=== PATIENT | female | born 1995 | race Two or more races ===

== ENCOUNTER 2023-07-05 17:16 | Inpatient (IN) ==
[2023-07-05] MEDS ORDERED: methylPREDNISolone 125 MG/2 ML VIAL IV STA (17:49)
[2023-07-05 17:50] LABS: Hemoglobin 13.7 g/dl (12.0-16.0); Mean Corpuscular Hgb Conc 33.4 g/dL (32.0-36.0); Mean Corpuscular Volume 83.8 fL (80.0-100.0); Mean Platelet Volume 8.9 fL (9.4-12.4); Platelet Count 439 K/uL (130-400); RDW Coefficient of Variation 12.9 % (11.5-14.5); RDW Standard Deviation 39.8 fL (36.4-46.3); Red Blood Count 4.89 M/uL (4.20-5.40); White Blood Count 6.46 K/ul (4.8-10.8)
--- NOTE | 2023-07-05 17:52 | Emergency Department Note ---
Impression & Plan Multiple sclerosis, Paresthesia ADMIT ED Provider Note HPI: History obtained from patient. The patient is a 27-year-old female with history of MS, who presents emergency department with chief complaint of numbness and visual changes. Patient states that she has had the symptoms throughout the day today. Patient states she has some numbness over the right side of her body as well as across her lower face and lips. Patient states she did have some of the symptoms yesterday however they have been worse today. Patient states she has had some visual changes as well. Patient denies any urinary incontinence or retention. Patient states that she does follow with [facility] neurology for MS and has also been seen at the [facility]. Patient states that she has been on Octrevus infusions, she states the last of which was in April in [place]. On arrival here to the ED the patient is alert and oriented x 3, she does not have any focal motor deficits, she otherwise appears to be in no acute distress on my initial assessment ROS: - Per HPI Differential Diagnosis: MS flare, stroke, intracranial hemorrhage, nonspecific paresthesias, ACS, critical electrolyte abnormalities, amongst other potential pathologies. *Outpatient medications and allergy history reviewed. PE: General: Alert HEENT: Normocephalic, trachea midline Eyes: Extraocular eye movement is intact, no scleral erythema Pulmonary: Clear to auscultation bilaterally, no wheezing Cardio: Regular rate and rhythm GI: Abdomen is soft to palpation : No suprapubic tenderness MSK: No evidence of trauma or malformation of the extremities, no edema, no asymmetrical swelling of either lower extremity Skin: No evidence of rash Neuro: Alert, no focal deficits, no drift of the upper extremities or lower extremities with testing against gravity, symmetrical facial movements are appreciated Psychiatric: Cooperative INDEPENDENT INTERPRETATIONS: monitoring and evaluation advisor: (As interpreted by myself): - An order was placed for continuous cardiac monitoring - Patient was noted to be in sinus rhythm with a rate of 100 EKG: (As interpreted by myself): Rate: 91 Rhythm: Normal sinus rhythm Intervals: Within normal limits ST changes: No ST elevation Time: 0528 PM Interventions provided in ED: -IV Solu-Medrol, IV fluid bolus, IV morphine, IV Zofran, IV Toradol Medical Decision Making: Patient presented to the emergency department in no acute distress. IV was established and lab work obtained, patient was placed on manager monitoring. Given the patient's previous diagnosis of MS with concern for MS flare with paresthesias, MRI imaging of the brain with and without contrast was ordered. Patient was also ordered a bolus of IV Solu-Medrol. Lab work shows no leukocytosis, hemoglobin is normal, platelet count is slightly elevated at 439, CMP does not show any critical findings, no evidence of any critical electrolyte abnormalities. MRI imaging of the brain was obtained and per the interpreting radiologist there is bilateral white matter lesions concerning for demyelinating disease without focal lesion concerning for active demyelination at this time. I discussed the patient's presentation and MRI imaging results with on-call neurology, Dr. Elder, who states that this time if the patient is symptomatically feeling well enough she can be discharged home with an oral steroid course. He advises that she follow-up in the office. Patient was initially in agreement to this plan however she stated shortly thereafter that she was having some pain in her right lower extremity that began to worsen after she got back from MRI. Patient states that she does get this pain chronically with her her MS flares. She describes the pain as located in the anterior quadriceps area and posterior to the knee. Patient states she also had the pain this morning but then it seemed to get better before acutely getting worse after returning from MRI. Patient was given Toradol and morphine here in the ED and held for an additional period of observation without significant relief in her pain. Following my reevaluation and discussion with her she would prefer inpatient admission at this time for pain control and further management of MS flare symptoms. Ultrasound imaging of the right lower extremity was therefore ordered given the atraumatic pain, [facility] hospitalist service was consulted for admission. Consultants/Discussions held with other healthcare providers: -Neurology, Dr. Elder -Hospitalist, Dr. Fernandez Disposition discussion held by myself with: -Patient Diagnosis: 1. Symptoms of acute MS flare, acute 2. Right lower extremity pain, acute on chronic, nonspecific Disposition: ADMIT Stephen Ospina DO Emergency Medicine Past Med/Surg History Problem List (Updated 07/05/23 @ 21:06 by Stephen Ospina DO) Paresthesia (Acute) Visual complaint Fatigue Vitamin D deficiency Multiple sclerosis (Acute) Family History (Updated 06/10/23 @ 09:02 by Alda Blake) Mother Hypertension Cancer Father Hypertension Social History Smoking Status: Never smoker Feels Safe at Home: Yes Allergies Allergies Allergy/AdvReac Type Severity Reaction Status Date / Time No Known Allergies Allergy Verified 06/10/23 08:59 Home Meds Home Medications Medication Instructions Recorded Confirmed ocrelizumab 30 mg/mL intravenous 600 mg IV Q6M 06/10/23 07/05/23 solution (Ocrevus) baclofen 10 mg tablet 10 mg PO UD 07/05/23 07/05/23 Previous Rx's Medication Instructions Recorded gabapentin 100 mg capsule 200 mg (2 x 100 mg) PO HS #60 caps 06/10/23 prednisone 20 mg tablet 20 mg PO BID #12 tabs 07/05/23 Results & Data (ED) Vital Signs Vital Signs - 24 hr 07/05/23 17:21 07/05/23 17:37 07/05/23 17:37 Temperature 36.8 C Temperature Source Temporal Artery Scan Pulse Rate 97 H Pulse Rate [Apical] 95 H Pulse Rate from SpO2 Sensor Pulse Rhythm [Apical] Respiratory Rate 18 21 Respiratory Effort / Characteristics Non-Labored Spontaneous Respiratory Depth Normal Respiratory Pattern Regular Blood Pressure 160/86 H Blood Pressure [Left Arm] 138/84 Blood Pressure Mean 110 Blood Pressure Mean [Left Arm] 102 Blood Pressure Position Sitting Blood Pressure Position [Left Arm] Pulse Oximetry 99 99 Oxygen Delivery Method Room Air Room Air Room Air Sepsis Recent Fever Within 48 Hours No Sepsis New/Unexplained Change in Mental Status N/A Sepsis Action Taken by Nursing No Action Required 07/05/23 17:37 07/05/23 17:39 07/05/23 18:15 Temperature Temperature Source Pulse Rate 94 H 85 Pulse Rate [Apical] Pulse Rate from SpO2 Sensor Pulse Rhythm [Apical] Respiratory Rate 20 Respiratory Effort / Characteristics Respiratory Depth Respiratory Pattern Blood Pressure 136/86 Blood Pressure [Left Arm] Blood Pressure Mean 102 Blood Pressure Mean [Left Arm] Blood Pressure Position Blood Pressure Position [Left Arm] Pulse Oximetry 99 Oxygen Delivery Method Room Air Sepsis Recent Fever Within 48 Hours Sepsis New/Unexplained Change in Mental Status Sepsis Action Taken by Nursing 07/05/23 18:30 07/05/23 19:55 07/05/23 19:55 Temperature Temperature Source Pulse Rate 95 H 85 Pulse Rate [Apical] 86 Pulse Rate from SpO2 Sensor 84 Pulse Rhythm [Apical] Regular Respiratory Rate 20 18 22 Respiratory Effort / Characteristics Non-Labored Spontaneous Respiratory Depth Normal Respiratory Pattern Regular Blood Pressure 128/84 Blood Pressure [Left Arm] 128/84 Blood Pressure Mean 98 Blood Pressure Mean [Left Arm] 98 Blood Pressure Position Blood Pressure Position [Left Arm] Sitting Pulse Oximetry 97 98 Oxygen Delivery Method Room Air Room Air Sepsis Recent Fever Within 48 Hours Sepsis New/Unexplained Change in Mental Status Sepsis Action Taken by Nursing 07/05/23 20:00 07/05/23 21:00 Temperature Temperature Source Pulse Rate 102 H Pulse Rate [Apical] Pulse Rate from SpO2 Sensor Pulse Rhythm [Apical] Respiratory Rate 18 Respiratory Effort / Characteristics Respiratory Depth Respiratory Pattern Blood Pressure 160/116 H Blood Pressure [Left Arm] Blood Pressure Mean 130 Blood Pressure Mean [Left Arm] Blood Pressure Position Blood Pressure Position [Left Arm] Pulse Oximetry 99 98 Oxygen Delivery Method Room Air Room Air Sepsis Recent Fever Within 48 Hours Sepsis New/Unexplained Change in Mental Status Sepsis Action Taken by Nursing Laboratory Data 07/05/23 17:30 07/05/23 17:30 Lab Results 07/05/23 07/05/23 Range/Units 17:30 19:59 WBC 6.46 (4.8-10.8) K/ul RBC 4.89 (4.20-5.40) M/uL Hgb 13.7 (12.0-16.0) g/dl Hct 41.0 (37.0-47.0) % MCV 83.8 (80.0-100.0) fL MCH 28.0 (25.0-34.0) pg MCHC 33.4 (32.0-36.0) g/dL RDW Std Deviation 39.8 (36.4-46.3) fL RDW Coeff of Jonh 12.9 (11.5-14.5) % Plt Count 439 H (130-400) K/uL MPV 8.9 L (9.4-12.4) fL PT Cancelled 10.7 INR Cancelled 1.0 APTT Cancelled 26 PTT Ratio Cancelled 1.0 Sodium 137 (136-145) mmol/L Potassium 4.3 (3.5-5.1) mmol/L Chloride 106 (98-107) mmol/L Carbon Dioxide 25 (21-32) mmol/L Anion Gap 6 (3-11) BUN 13 (6-23) mg/dl Creatinine 0.70 (0.6-1.2) mg/dl Est Cr Clr Drug Dosing Not Reportable Est GFR ( Amer) 138.6 ml/min Est GFR (Non-Af Amer) 119.6 ml/min BUN/Creatinine Ratio 18.6 (10-20) Glucose 110 H (70-99(Fasting)) mg/dl Calcium 9.8 (8.6-10.3) mg/dl Magnesium 2.0 (1.7-2.4) mg/dl Total Bilirubin 1.8 H (0.2-1.0) mg/dl AST 15 (13-39) U/L ALT 7 (7-52) U/L Alkaline Phosphatase 50 (34-104) U/L Total Protein 7.1 (6.0-8.3) gm/dl Albumin 4.7 (3.4-5.0) gm/dl Globulin 2.4 L (2.5-4.0) gm/dl Albumin/Globulin Ratio 2.0 (0.9-2) Administered Medications Discontinued Medications Gadoxetate Disodium (Gadoxetate Disodium) 6.5 ml IV ONCE ONE Stop: 07/05/23 19:28 Last Admin: 07/05/23 19:28 Dose: 6.5 ml Documented By: LUIS Sodium Chloride (Nss) 1,000 mls @ 999 mls/hr IV .Q1H1M ONE Stop: 07/05/23 18:48 Last Infusion: 07/05/23 20:30 Dose: Infused Documented By: Admin: 07/05/23 18:15 Dose: 999 mls/hr Documented By: ACC Methylprednisolone 500 mg/ (Dextrose) 108 mls @ 216 mls/hr IV ONE ONE Stop: 07/05/23 18:44 Last Infusion: 07/05/23 20:30 Dose: Infused Documented By: Admin: 07/05/23 19:48 Dose: 216 mls/hr Documented By: ARPIT Ketorolac Tromethamine (Ketorolac Tromethamine 15 Mg/Ml Vial) 15 mg IV NOW ONE Stop: 07/05/23 20:58 Last Admin: 07/05/23 21:19 Dose: 15 mg Documented By: ARPIT Morphine Sulfate (Morphine Sulfate 4 Mg/Ml 1 Ml Carp\Vial) 4 mg IV NOW STA Stop: 07/05/23 22:02 Last Admin: 07/05/23 22:10 Dose: 4 mg Documented By: ARPIT Ondansetron HCl (Ondansetron Inj 2 Mg/Ml 2 Ml Vial) 4 mg IV NOW STA Stop: 07/05/23 22:02 Last Admin: 07/05/23 22:10 Dose: 4 mg Documented By: ARPIT Imaging Data Radiologist's Impression: Chest X-Ray 07/05/23 17:26 XR chest 1V portable CLINICAL HISTORY: stroke alert COMPARISON STUDY: Chest radiograph June 01, 2023. FINDINGS: Lung volumes are normal. Lungs are clear. There is no pneumothorax or pleural effusion. Cardiac size is normal. Mediastinal contours are normal. There is no evidence for pulmonary edema. IMPRESSION: No acute cardiopulmonary findings. ACT 112: Negative or not required by law. Electronically signed by: Cooper Mckenna M.D. 07/05/2023 6:52 PM Brain MRI 07/05/23 17:48 Exam(s): MRI HEAD W/WO Contrast IV Amt: 6.5 CC JASMINA EXAM: MR Head Without and With Intravenous Contrast CLINICAL HISTORY: Reason for exam: numbness, history of MS. TECHNIQUE: Magnetic resonance images of the head/brain without and with intravenous contrast in multiple planes. CONTRAST: Patient received 6.5 CC JASMINA of IV contrast COMPARISON: CT head 06/01/23 FINDINGS: Brain: No diffusion restriction to suggest acute cerebral ischemia. No acute intracranial hemorrhage. There are numerous FLAIR hyperintense lesions within the periventricular and deep cerebral white matter bilaterally, with involvement of the callososeptal interface. There is volume loss within the corpus callosum. Lesions are suspicious for demyelinating disease. None of the lesions demonstrate diffusion restriction or postcontrast enhancement. Visualized intracranial flow voids appear normal. Ventricles: Cavum septum pellucidum and cavum vergae, a developmental variant. No hydrocephalus. Bones/joints: Unremarkable. No acute fracture. Sinuses: Severe mucosal thickening in both maxillary sinuses. No acute sinusitis. Mastoid air cells: Unremarkable as visualized. No mastoid effusion. Orbits: Unremarkable as visualized. IMPRESSION: 1. Bilateral white matter lesions suspicious for demyelinating disease. No lesion enhancement to suggest active demyelination at this time. 2. Bilateral maxillary sinus disease. Electronically signed by: Ricky Ogden M.D. 07/05/23 20:18 PM Discharge Plan Visit Data Chief Complaint: Neuro Symptoms/Deficit Stated Complaint: NUMBNESS IN CHEST/FACE/TONGUE, HAS MS ED Provider: Stephen Ospina Discharge Problem: Multiple sclerosis, Paresthesia Patient Disposition: Home - Self-Care Condition: Good Discharge Instructions Krames/Other Patient Handouts: Multiple Sclerosis, ED Paresthesia Activity Restrictions/Additional Instructions: Please follow-up with your primary care doctor in 2 to 3 days for reassessment and further management. Please follow-up with neurology in the office, as discussed, your case this evening and MRI results were discussed with the on-call neurologist, Dr. Elder. Please take your prednisone course as prescribed. Please return to the ER if you have any new or acutely worsening symptoms. Forms Stand Alone Forms: My [facility], Important Visit Information Prescriptions Prescriptions: New prednisone 20 mg tablet 20 mg PO BID Qty: 12 0RF Rx Instructions: Please take 1 tablet by mouth 3 times daily on days 1 and 2. Please take 1 tablet by mouth twice daily on days 3 through 4. Please take 1 tablet once daily by mouth on days 5 and 6 No Action Ocrevus 30 mg/mL solution 600 mg IV Q6M gabapentin 100 mg capsule 200 mg PO HS Qty: 60 2RF baclofen 10 mg tablet 10 mg PO UD Referrals Referrals: David Chen MD [Physician] - PCP,NO [Physician] -
[2023-07-05] MEDS: SODIUM CHLORIDE 0.9% 1,000 ML IV ONE (18:15)
[2023-07-05 18:26] LABS: Albumin Level 4.7 gm/dl (3.4-5.0); Anion Gap 6 (3-11); Bilirubin,Total 1.8 mg/dl (0.2-1.0); Calcium 9.8 mg/dl (8.6-10.3); Carbon Dioxide 25 mmol/L (21-32); Chloride 106 mmol/L (98-107); Potassium 4.3 mmol/L (3.5-5.1); Sodium 137 mmol/L (136-145)
[2023-07-05 18:32] LABS: Alanine Aminotransferase 7 U/L (7-52); Alkaline Phosphatase 50 U/L (34-104); Aspartate Aminotransferase 15 U/L (13-39); BUN Creatinine Ratio 18.6 (10-20); Blood Urea Nitrogen 13 mg/dl (6-23); Est GFR (African American) 138.6 ml/min; Est GFR (Non-African American) 119.6 ml/min; Globulin 2.4 gm/dl (2.5-4.0); Glucose 110 mg/dl (70-99(Fasting)); Total Protein 7.1 gm/dl (6.0-8.3)
--- NOTE | 2023-07-05 18:54 | XRay Report ---
XR chest 1V portable CLINICAL HISTORY: stroke alert COMPARISON STUDY: Chest radiograph June 01, 2023. FINDINGS: Lung volumes are normal. Lungs are clear. There is no pneumothorax or pleural effusion. Car diac size is normal. Mediastinal contours are normal. There is no evidence for pulmonary edema. IMPRESSION: No acute cardiopulmonary findings. ACT 112: Negative or not required by law. Electronically signed by: Cooper Mckenna M.D. 07/05/2023 6:52 PM
[2023-07-05] MEDS: GADOXETATE DISODIUM IV ONE (19:28)
[2023-07-05] MEDS: methylPREDNISolone 500 MG in DEXTROSE 5% 100 ML IV ONE (19:48)
--- NOTE | 2023-07-05 20:20 | Magnetic Resonance Report ---
Exam(s): MRI HEAD W/WO Contrast IV Amt: 6.5 CC JASMINA EXAM: MR Head Without and With Intravenous Contrast CLINICAL HISTORY: Reason for exam: numbness, history of MS. TECHNIQUE: Magnetic resonance images of the head/brain without and with intravenous contrast in multiple planes. CONTRAST: Patient received 6.5 CC JASMINA of IV contrast COMPARISON: CT head 06/01/23 FINDINGS: Brain: No diffusion restriction to suggest acute cerebral ischemia. No acute intracranial hemorrhage. There are numerous FLAIR hyperintense lesions within the periventricular and deep cerebral white matter bilaterally, with involvement of the callososeptal interface. There is volume loss within the corpus callosum. Lesions are suspicious for demyelinating disease. None of the lesions demonstrate diffusion restriction or postcontrast enhancement. Visualized intracranial flow voids appear normal. Ventricles: Cavum septum pellucidum and cavum vergae, a developmental variant. No hydrocephalus. Bones/joints: Unremarkable. No acute fracture. Sinuses: Severe mucosal thickening in both maxillary sinuses. No acute sinusitis. Mastoid air cells: Unremarkable as visualized. No mastoid effusion. Orbits: Unremarkable as visualized. IMPRESSION: 1. Bilateral white matter lesions suspicious for demyelinating disease. No lesion enhancement to suggest active demyelination at this time. 2. Bilateral maxillary sinus disease. Electronically signed by: Ricky Ogden M.D. 07/05/23 20:18 PM
[2023-07-05 21:02] LABS: Partial Thromboplastin Time 26 Seconds (21-31); Prothrombin Time 10.7 Seconds (9.0-12.0)
[2023-07-05] MEDS: KETOROLAC TROMETHAMINE 15 MG/ML VIAL IV ONE (21:19)
[2023-07-05] MEDS: MoRPHine SULFATE 4 MG/ML 1 ML CARP\\VIAL IV STA ×2 (22:10→23:18)
[2023-07-05] MEDS: ONDANSETRON INJ 2 MG/ML 2 ML VIAL IV STA (22:10)
--- NOTE | 2023-07-06 00:29 | History & Physical Report ---
Date of Service July 06, 2023 Assessment & Plan (1) Paresthesia: (2) Multiple sclerosis: (3) Multiple sclerosis exacerbation: Plan Multiple Sclerosis Exacerbation -Follows with [facility] and [facility] neurology (Dr. Chen) -MRI brain completed, due to new facial numbness/?radicular symptoms we will obtain MRI cervical spine -Has Ocrevus infusions every 6 months -Was recently started on gabapentin, however patient stopped this due to side effects -Received 500 IV methylpred in ED, will order additional 500mg IV now -Ordered 1000 IV methylprednisolone daily -Pain did not improve with Toradol or morphine, will trial IV Dilaudid PRN -Neurology consulted, appreciated recommendations -Ordered iron, vit. D and B12 levels with a.m. labs Right Lower Extremity Pain -Typically has worse pain/numbness with right LE per patient, however pain is much worse today -Venous duplex ordered, negative for DVT Admit to medical VTE Prophylaxis: Lovenox Diet: Regular Code Status: Full Code History of Present Illness Primary Care Provider: [facility] Jimmy Bonilla is a 27 year-old female with a past medical history of multiple sclerosis (diagnosed at age 15) she has had increasing symptoms of numbness of lower extremities over the last several months and since yesterday she has had new facial numbness as well. Typically experiences more right sided with leg and upper extremity weakness/numbness, however yesterday she started experiencing facial and tongue numbness for the first time. These symptoms have been constant since they started yesterday. Also endorses worsening right lower extremity pain which has not been relieved by any medications given in the ED. She states that she follows with [facility] as well as locally with Dr. Chen. Notes that she was started on gabapentin after her recent neurology appointment but stopped it as it seemed to make her symptoms worse. She states she has lost several pounds in the last few weeks to months as it has felt more difficult to swallow- she has been able to drink liquids but solid food has been difficult. Also endorses ongoing double vision/blurry vision. 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 She states she has a sister and [id number] who live locally. States that the end of her semester was difficult as her symptoms have been progressively worsening since February. She recalls that there was a oral presentation that she was unable to complete due to difficulty with articulation which has also been progressive for weeks to months. States that she typically uses a cane for ambulation. ED Course: -Right lower extremity venous duplex -MRI Brain -Methylpred 500mg IV -Morphine, Toradol Allergies Allergy/AdvReac Type Severity Reaction Status Date / Time No Known Allergies Allergy Verified 06/10/23 08:59 Home Medications Medication Instructions Recorded Confirmed Type gabapentin 100 mg capsule 200 mg (2 x 100 mg) PO HS #60 caps 06/10/23 07/05/23 Rx ocrelizumab 30 mg/mL intravenous 600 mg IV Q6M 06/10/23 07/05/23 History solution (Ocrevus) baclofen 10 mg tablet 10 mg PO UD 07/05/23 07/05/23 History prednisone 20 mg tablet 20 mg PO BID #12 tabs 07/05/23 Rx Past Med/Surg History Problem List (Updated 07/06/23 @ 14:57 by Leida Gaytan MD) Hyperalgesia Globus sensation Dysphagia Multiple sclerosis exacerbation Paresthesia (Acute) Visual complaint Fatigue Vitamin D deficiency Multiple sclerosis (Acute) Family History (Updated 06/10/23 @ 09:02 by Alda Blake) Mother Hypertension Cancer Father Hypertension Social History Smoking Status: Never smoker Hx Alcohol Use: No Hx Substance Use: No Preferred Language: Romanian Communication Ability: Effective Communication Ability Comment: can converse in Norwegian well - reports difficulty reading/writing Norwegian Infectious Disease Technician Required: No Beliefs That Will Affect Care: Confucianist Confucianist Beliefs: Cheondoism - vegan/vegetarian diet, common times of taoist , Spiritual Spiritual Healthcare Practices: prayer space and Cultural Cultural Beliefs: privacy needs, head coverings Current Living Situation: Spouse Current Living Situation Comment: lives w and 3 year old daughter Other Information That Helps Us Care for You: No Feels Safe at Home: Yes Safety Concerns: Feels Safe At This Time Assistive Devices: Cane Review of Systems Review of Systems: As per above Physical Exam Constitutional: well developed and well nourished; no acute distress Eyes: + anicteric sclerae and PERRL; no conjun ctival abnormality Endorses ongoing double vision ENMT: Ears: no external ear abnormality Nose: no external nose abnormality moist mucous membranes Respiratory: normal respiratory effort, lungs clear to auscultation Cardiovascular: Rate/Rhythm: regular rhythm and + tachycardic Extremities: no edema Gastrointestinal (Abdomen): Inspection/Auscultation: no abdominal edema Percussion/Palpation: abdomen soft; abdomen nontender Musculoskeletal: Spine: + pain with cervical ROM Moves all limbs independently, with discomfort Skin: no rashes, warm and dry Neurologic: awake Cranial Nerves: PERRL, EOM intact bilaterally, normal hearing, able to rotate head bilaterally and able to elevate shoulders bilaterally Decreased sensation at face, bilateral lower extremities. 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 Neuro exam limited by increased pain with all elements of examination. Psychiatric: A+Ox3, euthymic affect Results & Data Results & Data Vital Signs (Past 12 Hours) Vital Signs Temp Pulse Pulse Resp BP BP Pulse Ox 07/05/23 23:23 87 19 139/87 98 07/05/23 23:00 89 24 142/85 H 97 07/05/23 22:30 80 20 131/83 96 07/05/23 22:00 102 H 20 144/84 H 99 07/05/23 21:30 88 15 133/79 94 07/05/23 21:00 89 16 137/70 96 07/05/23 21:00 98 07/05/23 20:30 97 H 15 135/83 98 07/05/23 20:00 102 H 18 160/116 H 99 07/05/23 19:55 85 22 128/84 98 07/05/23 19:55 86 18 128/84 97 07/05/23 18:30 95 H 20 07/05/23 18:15 85 20 136/86 07/05/23 17:39 94 H 07/05/23 17:37 99 07/05/23 17:37 07/05/23 17:37 95 H 21 138/84 99 07/05/23 17:21 36.8 C 97 H 18 160/86 H 99 O2 Del Method 07/05/23 23:23 Room Air 07/05/23 23:00 Room Air 07/05/23 22:30 Room Air 07/05/23 22:00 Room Air 07/05/23 21:30 Room Air 07/05/23 21:00 Room Air 07/05/23 21:00 Room Air 07/05/23 20:30 Room Air 07/05/23 20:00 Room Air 07/05/23 19:55 Room Air 07/05/23 19:55 Room Air 07/05/23 18:30 07/05/23 18:15 07/05/23 17:39 07/05/23 17:37 Room Air 07/05/23 17:37 Room Air 07/05/23 17:37 Room Air 07/05/23 17:21 Room Air Diagnostic Findings Chest X-Ray 07/05/23 17:26 XR chest 1V portable CLINICAL HISTORY: stroke alert COMPARISON STUDY: Chest radiograph June 01, 2023. FINDINGS: Lung volumes are normal. Lungs are clear. There is no pneumothorax or pleural effusion. Cardiac size is normal. Mediastinal contours are normal. There is no evidence for pulmonary edema. IMPRESSION: No acute cardiopulmonary findings. ACT 112: Negative or not required by law. Electronically signed by: Cooper Mckenna M.D. 07/05/2023 6:52 PM Brain MRI 07/05/23 17:48 Exam(s): MRI HEAD W/WO Contrast IV Amt: 6.5 CC JASMINA EXAM: MR Head Without and With Intravenous Contrast CLINICAL HISTORY: Reason for exam: numbness, history of MS. TECHNIQUE: Magnetic resonance images of the head/brain without and with intravenous contrast in multiple planes. CONTRAST: Patient received 6.5 CC JASMINA of IV contrast COMPARISON: CT head 06/01/23 FINDINGS: Brain: No diffusion restriction to suggest acute cerebral ischemia. No acute intracranial hemorrhage. There are numerous FLAIR hyperintense lesions within the periventricular and deep cerebral white matter bilaterally, with involvement of the callososeptal interface. There is volume loss within the corpus callosum. Lesions are suspicious for demyelinating disease. None of the lesions demonstrate diffusion restriction or postcontrast enhancement. Visualized intracranial flow voids appear normal. Ventricles: Cavum septum pellucidum and cavum vergae, a developmental variant. No hydrocephalus. Bones/joints: Unremarkable. No acute fracture. Sinuses: Severe mucosal thickening in both maxillary sinuses. No acute sinusitis. Mastoid air cells: Unremarkable as visualized. No mastoid effusion. Orbits: Unremarkable as visualized. IMPRESSION: 1. Bilateral white matter lesions suspicious for demyelinating disease. No lesion enhancement to suggest active demyelination at this time. 2. Bilateral maxillary sinus disease. Electronically signed by: Ricky Ogden M.D. 07/05/23 20:18 PM Venous Doppler Study 07/05/23 22:52 Exam(s): US VENOUS RIGHT LOWER EXTREMITY EXAM: US Duplex Right Lower Extremity Veins CLINICAL HISTORY: Reason for exam: atraumatic Leg pain, eval for dvt. TECHNIQUE: Real-time duplex ultrasound scan of the right lower extremity veins integrating B-mode two-dimensional vascular structure, Doppler spectral analysis, color flow Doppler imaging and compression. COMPARISON: No relevant prior studies available. FINDINGS: Deep veins: Unremarkable. No DVT in the visualized common femoral, femoral, proximal deep femoral or popliteal veins. The veins demonstrate normal color flow, are normally compressible, with normal phasic flow and/or augmentation response. Superficial veins: Unremarkable. No thrombus in the visualized great saphenous vein. Soft tissues: No acute findings. No popliteal cyst. IMPRESSION: Negative right lower extremity duplex venous ultrasound. No evidence of DVT. Electronically signed by: Sukumar Lamar MD 07/06/23 01:48 AM Supervising Physician Co-Signing Physician Notes Attending addendum: I have physically seen this patient, have supervised the medical residents activities, and agree with the H&P unless as otherwise noted. Assessment and Plan: Multiple sclerosis exacerbation- Methylprednisolone 100 mg IV daily for 3 days MRI brain suggesting demyelinating disease with no acute findings Order MRI cervical spine Established with Dr. Chen on 06/10/2023, at which time gabapentin was started Ocrevus is being transferred from [facility] to local administration at [facility] Consult neurology Resident Activity Tracking Resident Involvement: Resident Care Provided Care Provided: Adult [facility] Medicine
--- NOTE | 2023-07-06 01:49 | Ultrasound Report ---
Exam(s): US VENOUS RIGHT LOWER EXTREMITY EXAM: US Duplex Right Lower Extremity Veins CLINICAL HISTORY: Reason for exam: atraumatic Leg pain, eval for dvt. TECHNIQUE: Real-time duplex ultrasound scan of the right lower extremity veins integrating B-mode two-dimensional vascular structure, Doppler spectral analysis, color flow Doppler imaging and compression. COMPARISON: No relevant prior studies available. FINDINGS: Deep veins: Unremarkable. No DVT in the visualized common femoral, femoral, proximal deep femoral or popliteal veins. The veins demonstrate normal color flow, are normally compressible, with normal phasic flow and/or augmentation response. Superficial veins: Unremarkable. No thrombus in the visualized great saphenous vein. Soft tissues: No acute findings. No popliteal cyst. IMPRESSION: Negative right lower extremity duplex venous ultrasound. No evidence of DVT. Electronically signed by: Sukumar Lamar MD 07/06/23 01:48 AM
[2023-07-06] MEDS ORDERED: POLYETHYLENE (MIRALAX) 17 GM PACK PO PRN (02:35)
[2023-07-06] MEDS ORDERED: MELATONIN 3 MG TAB PO PRN (02:35)
[2023-07-06] MEDS ORDERED: HYDROmorphone INJ 0.5 MG/0.5 ML SYR IV PRN (02:35)
[2023-07-06] MEDS: HYDROmorphone INJ 0.5 MG/0.5 ML SYR IV PRN (03:04)
[2023-07-06] MEDS ORDERED: methylPREDNISolone 1000 MG/16 ML IV ONE (04:08)
[2023-07-06] MEDS ORDERED: ACETAMINOPHEN 325 MG TAB PO PRN (04:08)
[2023-07-06] MEDS: methylPREDNISolone 500 MG in DEXTROSE 5% 100 ML IV ONE (04:50)
[2023-07-06] MEDS: KETOROLAC TROMETHAMINE 15 MG/ML VIAL IV PRN (06:03)
[2023-07-06 07:32] LABS: Basophils # (auto) 0.01 K/uL (0.00-0.20); Basophils % (auto) 0.2 %; Hematocrit (blood only) 40.3 % (37.0-47.0); Hemoglobin 13.3 g/dl (12.0-16.0); Immature Granulocytes # (auto) 0.02 K/uL (0.01-0.20); Immature Granulocytes % (auto) 0.5 %; Lymphocytes # (auto) 0.75 K/uL (1.20-3.40); Lymphocytes % (auto) 17.5 %; Mean Corpuscular Hemoglobin 27.7 pg (25.0-34.0); Monocytes # (auto) 0.04 K/uL (0.11-0.59); Monocytes % (auto) 0.9 %; Neutrophils # (auto) 3.46 K/uL (1.40-6.50); Neutrophils % (auto) 80.9 %; Platelet Count 436 K/uL (130-400); RDW Coefficient of Variation 12.6 % (11.5-14.5); RDW Standard Deviation 38.7 fL (36.4-46.3); White Blood Count 4.28 K/ul (4.8-10.8)
[2023-07-06 07:59] LABS: Albumin Globulin Ratio 1.9 (0.9-2); Albumin Level 4.5 gm/dl (3.4-5.0); BUN Creatinine Ratio 17.5 (10-20); Bilirubin,Total 2.4 mg/dl (0.2-1.0); Calcium 9.5 mg/dl (8.6-10.3); Creatinine Clr Calc Pharmacy 134.6 ml/min; Est GFR (African American) 148.3 ml/min; Est GFR (Non-African American) 127.9 ml/min; Globulin 2.4 gm/dl (2.5-4.0); Magnesium 1.9 mg/dl (1.7-2.4); Potassium 4.2 mmol/L (3.5-5.1); Total Protein 6.9 gm/dl (6.0-8.3)
[2023-07-06] MEDS: ENOXAPARIN INJ 40 MG/0.4 ML SYR SQ SCH (08:02)
[2023-07-06 08:18] LABS: Ferritin 41.4 ng/ml (8-388)
[2023-07-06] MEDS ORDERED: methylPREDNISolone 1,000 MG in DEXTROSE 5% 250 ML IV SCH (09:00)
[2023-07-06] MEDS ORDERED: methylPREDNISolone 1000 MG/16 ML IV SCH (09:00)
--- NOTE | 2023-07-06 09:27 | Neurology Consultation ---
Date of Consultation July 06, 2023 Assessment & Plan (1) Multiple sclerosis exacerbation: History of Present Illness Attending Physician: Maria Mejia, History of Present Illness pt this morning feeling little better from steroid. pt feels she wants to get IV steroid for her feeling weak. she states she was having anxiety about swallowing and states she has not really been eating or drinking for last few days. she admits being under increase stress due to her school work. she states she has baseline numbness in her whole body and she came in because face entire face was numb. she states her chronic fatigue and numbness has been ongion for months and she has baseline rt side weakness from her MS per pt. pt is on Ocrevus and followed by dr. Chen. had 1g IV solumderol so far. HPI: Anjelica Bonilla is a 27 year-old female with a past medical history of multiple sclerosis (diagnosed at age 15) she has had increasing symptoms of numbness of lower extremities over the last several months and since yesterday she has had new facial numbness as well. Typically experiences more right sided with leg and upper extremity weakness/numbness, however yesterday she started experiencing facial and tongue numbness for the first time. These symptoms have been constant since they started yesterday. Also endorses worsening right lower extremity pain which has not been relieved by any medications given in the ED. She states that she follows with [facility] as well as locally with Dr. Chen. Notes that she was started on gabapentin after her recent neurology appointment but stopped it as it seemed to make her symptoms worse. She states she has lost several pounds in the last few weeks to months as it has felt more difficult to swallow- she has been able to drink liquids but solid food has been difficult. Also endorses ongoing double vision/blurry vision. 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 She states she has a sister and [id number] who live locally. States that the end of her semester was difficult as her symptoms have been progressively worsening since February. She recalls that there was a oral pres entation that she was unable to complete due to difficulty with articulation which has also been progressive for weeks to months. States that she typically uses a cane for ambulation. Allergies Allergy/AdvReac Type Severity Reaction Status Date / Time No Known Allergies Allergy Verified 06/10/23 08:59 Home Medications Medication Instructions Recorded Confirmed Type gabapentin 100 mg capsule 200 mg (2 x 100 mg) PO HS #60 caps 06/10/23 07/05/23 Rx ocrelizumab 30 mg/mL intravenous 600 mg IV Q6M 06/10/23 07/05/23 History solution (Ocrevus) baclofen 10 mg tablet 10 mg PO UD 07/05/23 07/05/23 History prednisone 20 mg tablet 20 mg PO BID #12 tabs 07/05/23 Rx Patient History Family History (Updated 06/10/23 @ 09:02 by Alda Blake) Mother Hypertension Cancer Father Hypertension Social History Smoking Status: Never smoker Hx Alcohol Use: No Hx Substance Use: No Preferred Language: Romansh Communication Ability: Effective Communication Ability Comment: can converse in Cook Islander well - reports difficulty reading/writing Cook Islander Narcotics Agent Required: No Beliefs That Will Affect Care: Bahai Bahai Beliefs: Catholic - vegan/vegetarian diet, common times of jainism , Spiritual Spiritual Healthcare Practices: prayer space and Cultural Cultural Beliefs: privacy needs, head coverings Current Living Situation: Spouse Current Living Situation Comment: lives w and 3 year old daughter Other Information That Helps Us Care for You: No Feels Safe at Home: Yes Safety Concerns: Feels Safe At This Time Assistive Devices: Cane Exam (Neuro) Physical Exam: HEENT: normocephalic Neuro: Mental: AOx4, fluent speech, normal comprehension, no apraxia, no L/R confusion, no neglect CN: PERRL, Full EOM, symmetric face, decrease to touch rt entire face, midline U/T/P, Motor: No abnormal movements, normal tone and bulk, RUE: 4/5 t/o subjective weakness with give way component t/o. LUE: 5-/5 t/o. b/l LE with 4/5 diffuse feeling weakness with poor effort and give way weakness with limited exam due to pt not giving full effort. Sens: decrease to touch rt entire arm and leg t/o. Coord: intact grossly. DTR: 2+ sym b/l Gait: deferred. Impression: 27 yo female with RR MS who appears to have minor MS flare up in setting of increase stress and anxiety and her neuro exam was very functional with give way weakness. Unclear about her swallowing anxiety as there is no localization and no clear reason for her to have swallowing issue. MRI brain with no JASMINA enhancing lesions, otherwise stable. Recommendations: -pt wants to stay longer for IV steroid, can finish up steroid tx with 1gm IV solumedrol daily for total of 3 days (already had 1 gm) with po prednisone opal as outpt when done (prednisone 60mg daily for 2 days and 40mg daily for 2 days and 20mg daily for 2 days and stop). -physical therapy consult to help with pt ambulation and evaluation for generalized feeling weak. -vit D replacement therapy (she was on s upplement but stopped as she ran out of med) -may need psychiatry consult as outpt as I feels there is significant anxiety and stress likely contributing to her symptoms. f/u with Dr. Chen as outpt once discharged. -maybe GI evaluation as outpt for her ch ronic subjective feeling of swallowing issue. please call again if new question. - Chart reviewed I have spent more than 50% educating patient about potential diagnosis and neurological evaluation and coordinating care with patient's treatment team. Total time spent (including chart review and coordination of care): 60 min (this includes chart review). Results & Data Vital Signs (Past 12 Hours) Vital Signs Temp Pulse Pulse Resp BP BP Pulse Ox 07/06/23 07:43 36.5 C 68 16 124/78 98 07/06/23 02:15 07/06/23 02:15 36.7 C 82 18 136/91 98 07/06/23 01:30 83 21 139/84 96 07/06/23 01:00 100 H 16 133/73 96 07/06/23 00:30 84 20 135/78 97 07/06/23 00:15 86 18 154/78 H 97 07/06/23 00:14 85 18 154/78 H 96 07/06/23 00:13 98 H 24 96 07/05/23 23:23 87 19 139/87 98 07/05/23 23:00 89 24 142/85 H 97 07/05/23 22:30 80 20 131/83 96 07/05/23 22:00 102 H 20 144/84 H 99 07/05/23 21:30 88 15 133/79 94 O2 Del Method 07/06/23 07:43 Room Air 07/06/23 02:15 Room Air 07/06/23 02:15 Room Air 07/06/23 01:30 Room Air 07/06/23 01:00 Room Air 07/06/23 00:30 Room Air 07/06/23 00:15 Room Air 07/06/23 00:14 Room Air 07/06/23 00:13 Room Air 07/05/23 23:23 Room Air 07/05/23 23:00 Room Air 07/05/23 22:30 Room Air 07/05/23 22:00 Room Air 07/05/23 21:30 Room Air PG Care Time/CCT Total # of Minutes Spent Total Time Spent with Patient: Total time spent is greater than 50% in coordination of care (as documented) at patient's floor/unit and/or counseling patient: Coding Level of Care Code 75917 IN/OBS CONSULT LVL 4,60M Diagnoses Multiple sclerosis exacerbation G35
--- NOTE | 2023-07-06 09:57 | Hospitalist Progress Note ---
Date of Service July 06, 2023 Assessment & Plan (1) Multiple sclerosis exacerbation: Plan: MS flare. Originally diagnosed by [facility], now [place] [facility] [place]. [place]). On Ocrevus infusions every 6 months - last infusion April 2023. Was on gabapentin, but there were significant side effects. No signs of VTE on bilateral dopplers. Steroids started in the ED. MRI Brain and C-spine without new/JASMINA enhancing lesions. Neuro consult - appreciate recs 1000 mg IV methylpred x 3, then outpatient pred taper (60 mg x 2, 40 mg x2, 20 mg x2) replete Vit D - 50,000 Q7D x 8 weeks, then recheck and likely switch to 2000 units daily may benefit from psychiatric/psychologic referral outpatient - general anxiety in addition to diagnostic anxiety PT/OT neuro consult - appreciate recs pain management as below f/u neuro outpatient Dr. Chen (2) Hyperalgesia: Plan: Consider starting neuropathic pain agent like pre-gablin or duloxetine Pain Regimen: Toradol 15 mg Q6H PRN Tylenol 650 Q6H PRN Dilaudid 0.5 and 1.0 mg Q3H PRN with pain scale (3) Dysphagia: Plan: Patient with dysphagia/globus sensation. Less likely MS related per neurology. Inpatient swallow study - mild oral dysphagia 2/2 oral numbness. Recommend outpatient endoscopy for possible dilatation. (4) Globus sensation: Plan: See above Plan Code status: full DVT ppx: lovenox FENGI: regular IDDSI 7 with thin liquids as tolerated Dispo: Med/Surg Documentation reviewed and edited by Leida Gaytan MD FCM PGY2. Direct supervision of MS2 Jennifer Mckeon not performed by the resident. See attending attestation for further documentation. Admission and Anticipated Discharge Date Admission Date: July 06, 2023 Supervising Physician Co-Signing Physician Notes I personally examined the patient and verified roque points of history and exam, discussed case, and agree with decision making and plan documented by Jennifer Mckeon [facility] with contribution by Dr. Gaytan. Patient with some improvement of neurological symptoms. Will continue 3 days of Solu-Medrol then taper of prednisone as recommended by neurology. Vitamin D will be supplemented. Patient with swallow study today that showed mild oral dysphagia with concern of esophageal dysfunction. Discussed with patient recommendation of referral to gastroenterology outpatient for consideration of EGD evaluation. 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 Advised her to maintain self care, stress reduction, and sleep hygiene as able. Subjective Today, patient reports that she is feeling better than yesterday, but still has persistent right arm and right leg numbness and pain. Additionally, she reports that she has some left arm and left leg numbness but it is far worse on her right side. She also expresses that she has worsening numbness of her face, which is particularly worse on her right side. Her facial numbness initially started in the lower half of her face, but now she reports that she has numbness in her cheek and forehead regions as well. She is also unable to eat and drink due to difficulty swallowing and numbness in her throat and tongue, particularly on the right side. She states that this difficulty swallowing has persisted for almost six months while the extremity numbness has been constant for the past 3 months. The extremity numbness started off on her right side and eventually she had left arm and leg numbness as well. She also reports visual blurring and double vision, but states that she has had these symptoms for a few months and has been seen by ophthalmology. Her face numbness and tongue numbness is what concerned her as it is new and has not gotten better since the steroid treatment. She also expressed that she feels very unstable with ambulating, even with her cane due to right sided weakness and pain. Review of Systems 2 Review of Systems: All systems reviewed & are unremarkable except as noted in HPI & below Physical Exam 2 Physical Exam: General: awake, alert, no acute distress Head: Normocephalic, atraumatic ENT: PERRL, EOMI, neck supple; no lymphadenopathy Neuro: alert and oriented x3 , normal mood and affect; cranial nerves 2-12 intact, however patient states there is double vision and visual blurring. Able to rotate head bilaterally and elevate shoulders. Decreased sensation to touch at face, particularly right side, bilateral lower extremities, particularly right lower extremities, and bilaterally in both arms, particularly right upper extremity. 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 Due to increased generalized pain, particularly right- sided pain, neuro examination was limited. Patient moves all limbs, but with pain and discomfort CV: RRR; S1/S2 normal; no murmurs/rubs/gallops; pulses intact and symmetric at radial, DP, and PT Lungs: no acute respiratory distress; symmetrical chest wall expansion; clear breath sounds across all lung peña; no wheezing GI: bowel sounds present; Soft; nondistended; no ascites; no rebound/guarding Skin: no rashes, warm and dry Psych: Normal mood and affect Results & Data Results & Data Laboratory Results 07/06/23 06:47 07/06/23 06:47 Diagnostic Findings Chest X-Ray 07/05/23 17:26 FINDINGS: Lung volumes are normal. Lungs are clear. There is no pneumothorax or pleural effusion. Cardiac size is normal. Mediastinal contours are normal. There is no evidence for pulmonary edema. IMPRESSION: No acute cardiopulmonary findings. Brain MRI 07/05/23 17:48 FINDINGS: Brain: No diffusion restriction to suggest acute cerebral ischemia. No acute intracranial hemorrhage. There are numerous FLAIR hyperintense lesions within the periventricular and deep cerebral white matter bilaterally, with involvement of the callososeptal interface. There is volume loss within the corpus callosum. Lesions are suspicious for demyelinating disease. None of the lesions demonstrate diffusion restriction or postcontrast enhancement. Visualized intracranial flow voids appear normal. Ventricles: Cavum septum pellucidum and cavum vergae, a developmental variant. No hydrocephalus. Bones/joints: Unremarkable. No acute fracture. Sinuses: Severe mucosal thickening in both maxillary sinuses. No acute sinusitis. Mastoid air cells: Unremarkable as visualized. No mastoid effusion. Orbits: Unremarkable as visualized. IMPRESSION: 1. Bilateral white matter lesions suspicious for demyelinating disease. No lesion enhancement to suggest active demyelination at this time. 2. Bilateral maxillary sinus disease. Venous Doppler Study 07/05/23 22:52 FINDINGS: Deep veins: Unremarkable. No DVT in the visualized common femoral, femoral, proximal deep femoral or popliteal veins. The veins demonstrate normal color flow, are normally compressible, with normal phasic flow and/or augmentation response. Superficial veins: Unremarkable. No thrombus in the visualized great saphenous vein. Soft tissues: No acute findings. No popliteal cyst. IMPRESSION: Negative right lower extremity duplex venous ultrasound. No evidence of DVT. Cervical Spine MRI 07/06/23 01:02 FINDINGS: The alignment is anatomical. Disks are normal in height and signal. C2-C3: Unremarkable. C3-C4: Unremarkable. C4-C5: Unremarkable. C5-C6: Unremarkable. C6-C7: Unremarkable. C7-T1: Unremarkable. The spinal ligaments are intact, without evidence of disruption or abnormal signal intensity. There are foci of increased T2 signal most prominently at the levels of C2, C4, and T3. There is no evidence of an extradural, intradural, extramedullary or intramedullary lesion. Visualized soft tissues are normal. Visualized brain parenchyma is normal. IMPRESSION: Multifocal regions of T2 hyperintensity in the spinal cord are seen. No demyelination changes are seen. Videofluoroscopic Swallow 07/06/23 13:00 FINDINGS: Total fluoroscopy time: 1.57 minutes. Radiation dose: 5.75 mGy. The patient swallowed the different barium consistencies without difficulty. There was no laryngeal vestibular penetration or aylin tracheal aspiration. Pooling of barium was noted in the bilateral piriform sinuses and valleculae. IMPRESSION: No evidence of aspiration. Please see the speech pathology report for further details. Resident Activity Tracking Resident Involvement: Resident Care Provided Care Provided: [facility] Medicine
--- NOTE | 2023-07-06 11:50 | Electrocardiogram Report ---
Test Reason : Blood Pressure : / mmHG Vent. Rate : 091 BPM Atrial Rate : 091 BPM P-R Int : 122 ms QRS Dur : 088 ms QT Int : 338 ms P-R-T Axes : 069 054 -03 degrees QTc Int : 415 ms Normal sinus rhythm Nonspecific T wave abnormality Abnormal ECG No previous ECGs available Confirmed by Eyal De Los Santos ([id number]) on 07/06/2023 11:50:30 AM Referred By: [facility] Confirmed By:Moises De Los Santos
[2023-07-06] MEDS: GADOBUTROL 65ML VIAL IV ONE (13:09)
--- NOTE | 2023-07-06 14:01 | Magnetic Resonance Report ---
CLINICAL HISTORY: known MS, radicular symptoms TECHNIQUE: MRI of the cervical spine is performed utilizing various T1 and T2 sequences in the axial and sagittal planes. IV contrast was administered for this examination. Comparison: None available at the time of this dictation. FINDINGS: The alignment is anatomical. Disks are normal in height and signal. C2-C3: Unremarkable. C3-C4: Unremarkable. C4-C5: Unremarkable. C5-C6: Unremarkable. C6-C7: Unremarkable. C7-T1: Unremarkable. The spinal ligaments are intact, without evidence of disruption or abnormal signal intensity. There a re foci of increased T2 signal most prominently at the levels of C2, C4, and T3. There is no evidence of an extradural, intradural, extramedullary or intramedullary lesion. Visualized soft tissues are n ormal. Visualized brain parenchyma is normal. IMPRESSION: Multifocal regions of T2 hyperintensity in the spinal cord are seen. No demyelination changes are see n. ACT 112: Negative or not required by law. Electronically signed by: Yury Couch M.D. 07/06/2023 1:59 PM
[2023-07-06] MEDS: HYDROmorphone INJ 1 MG/ML SYRINGE IV PRN (14:06)
[2023-07-06] MEDS: ONDANSETRON INJ 2 MG/ML 2 ML VIAL IV PRN (14:07)
--- NOTE | 2023-07-06 14:41 | Fluoroscopy Report ---
FL video swallow CLINICAL HISTORY: MS and difficulty swallowing for months TECHNIQUE: Video fluoroscopy of the pharyngeal region was performed as barium mixtures of varying con sistencies were administered to the patient by the speech pathologist. A formal esophagram was not pe rformed. Comparison: None available at the time of this dictation. FINDINGS: Total fluoroscopy time: 1.57 minutes. Radiation dose: 5.75 mGy. The patient swallowed the different barium consistencies without difficulty. There was no laryngeal v estibular penetration or aylin tracheal aspiration. Pooling of barium was noted in the bilateral piri form sinuses and valleculae. IMPRESSION: No evidence of aspiration. Please see the speech pathology report for further details. ACT 112: Negative or not required by law. Electronically signed by: Yury Cuoch M.D. 07/06/2023 2:39 PM
[2023-07-06] MEDS: ERGOCALCIFEROL 1250 MCG (50,000 UNITS) CAP PO SCH (15:56)
[2023-07-06] MEDS: ACETAMINOPHEN 325 MG TAB PO SCH (17:12)
--- NOTE | 2023-07-06 19:46 | Billing Data ---
Date of Service July 06, 2023 Coding Level of Care Code 89100 INT INP/OBS CARE
[2023-07-06] MEDS: methylPREDNISolone 1,000 MG in DEXTROSE 5% 250 ML IV SCH (20:45)
[2023-07-07] MEDS: HYDROmorphone INJ 0.5 MG/0.5 ML SYR IV PRN (05:21)
[2023-07-07] MEDS: ACETAMINOPHEN 1,000 MG/100 ML VIAL IV STA (06:09)
[2023-07-07 07:48] LABS: Hematocrit (blood only) 37.1 % (37.0-47.0); Hemoglobin 12.5 g/dl (12.0-16.0); Mean Corpuscular Hemoglobin 28.3 pg (25.0-34.0); Mean Corpuscular Hgb Conc 33.7 g/dL (32.0-36.0); Mean Corpuscular Volume 84.1 fL (80.0-100.0); Platelet Count 437 K/uL (130-400); RDW Coefficient of Variation 12.8 % (11.5-14.5); RDW Standard Deviation 39.1 fL (36.4-46.3); Red Blood Count 4.41 M/uL (4.20-5.40); White Blood Count 11.47 K/ul (4.8-10.8)
[2023-07-07 08:13] LABS: Albumin Globulin Ratio 1.8 (0.9-2); Albumin Level 4.2 gm/dl (3.4-5.0); BUN Creatinine Ratio 28.6 (10-20); Bilirubin,Total 2.3 mg/dl (0.2-1.0); Calcium 9.2 mg/dl (8.6-10.3); Creatinine Clr Calc Pharmacy 109.6 ml/min; Est GFR (African American) 138.6 ml/min; Est GFR (Non-African American) 119.6 ml/min; Globulin 2.3 gm/dl (2.5-4.0); Potassium 4.1 mmol/L (3.5-5.1); Total Protein 6.5 gm/dl (6.0-8.3)
[2023-07-07 08:35] LABS: Basophils # (auto) 0.01 K/uL (0.00-0.20); Basophils % (auto) 0.1 %; Immature Granulocytes # (auto) 0.08 K/uL (0.01-0.20); Immature Granulocytes % (auto) 0.7 %; Lymphocytes # (auto) 0.76 K/uL (1.20-3.40); Lymphocytes % (auto) 6.6 %; Monocytes # (auto) 0.25 K/uL (0.11-0.59); Monocytes % (auto) 2.2 %; Neutrophils # (auto) 10.37 K/uL (1.40-6.50); Neutrophils % (auto) 90.4 %; RBC Morphology Unremarkable
--- NOTE | 2023-07-07 09:42 | Hospitalist Progress Note ---
Date of Service July 07, 2023 Assessment & Plan (1) Multiple sclerosis exacerbation: Plan: MS flare. Originally diagnosed by [facility], now follows with [facility] neurology (Dr. Chen). On Ocrevus infusions every 6 months - last infusion April 2023. Was on gabapentin, but there were significant side effects. No signs of VTE on bilateral dopplers. Steroids started in the ED. MRI Brain and C-spine without new/JASMINA enhancing lesions. Neuro consult - appreciate recs * 1000 mg IV methylpred x 5, then outpatient pred taper (60 mg x 2, 40 mg x2, 20 mg x2) * replete Vit D - 50,000 Q7D x 8 weeks, then recheck and likely switch to 2000 units daily * may benefit from psychiatric/psychologic referral outpatient - general anxiety in addition to diagnostic anxiety * PT/OT * neuro consult - appreciate recs * pain management as below * new low back pain radiating into pelvis/saddle paraesthesias - MRI T-Spine L-Spine, discussed with neuro (2) Hyperalgesia: Plan: Consider starting neuropathic pain agent like pre-gablin or duloxetine if scheduled baclofen and tylenol do not provide adequate relief. * Pain Regimen: * Toradol 15 mg Q6H PRN * Baclofen 10 mg TID REGINALD * Tylenol 1000 mg IV Q8H REGINALD * Dilaudid 0.5 and 1.0 mg Q3H PRN with pain scale (3) Dysphagia: Plan: Patient with dysphagia/globus sensation. Less likely MS related per neurology. Inpatient swallow study - mild oral dysphagia 2/2 oral numbness. Recommend outpatient endoscopy for possible dilatation. GI consult - appreciate recs * PPI pantoprazole BID (4) Globus sensation: Plan: * See above. Plan Code status: full DVT ppx: lovenox FENGI: regular IDDSI 7 with thin liquids as tolerated Dispo: Med/Surg Documentation reviewed and edited by Leida Gaytan MD FCM PGY2. Direct supervision of MS2 Jennifer Mckeon was not performed by the resident. See attending attestation for further documentation. Admission and Anticipated Discharge Date Admission Date: July 06, 2023 Supervising Physician Co-Signing Physician Notes I personally examined the patient and verified roque points of history and exam, discussed case, and agree with decision making and plan documented by Jennifer Mckeon [facility] with contribution of Dr. Gaytan. Patient continues to have increased pain reportedly more in lower extremities today that feels like it is migrating up and down her body at times. Additional MRI thoracic and lumbar spine ordered for further evaluation. Patient remains on 1 g IV Solu-Medrol, consider extending to 5 days of treatment and then pursuing prednisone taper. Working with patient for pain control. Pantoprazole initiated IV, recommended to continue p.o. at discharge and will follow-up with GI for possible EGD evaluation outpatient. Subjective Today, patient reports that the prior numbness and pain in her right arm and leg is better, however, she is experiencing lower back pain and a shooting pain in her left and right leg. She reports that this pain starts in the back and spreads downward to her legs and it is one she has not experienced before. Additionally, she is able to ambulate utilizing the walker and having help from her nurses, but otherwise she feels unstable. Patient also states that her facial numbness is the same as it was yesterday. She also reports experiencing numbness on her tongue and is unable to taste any of the foods she is eating, but is able to sense the temperature. Review of Systems 2 Review of Systems: All systems reviewed & are unremarkable except as noted in HPI & below. Physical Exam 2 Physical Exam: General: awake, alert, no acute distress Head: Normocephalic, atraumatic ENT: PERRL, EOMI, neck supple; no lymphadenopathy Neuro: alert and oriented x3 , normal mood and affect; cranial nerves 2-12 intact- patient reports double vision and visual blurring. Able to rotate head bilaterally and elevate shoulders. Decreased sensation to touch at face, particularly right side, bilateral lower extremities, particularly right lower extremities, and bilaterally in both arms, particularly right upper extremity. Patient has decreased bilateral construction grip strength, particularly decreased right- sided strength. Due to increased generalized pain, particularly right-sided pain and lower extremity pain, neuro examination was limited. Patient moves all limbs, but with pain and discomfort. Shooting back pain migrating to both lower extremities are present CV: RRR; S1/S2 normal; no murmurs/rubs/gallops; pulses intact and symmetric at radial, DP, and PT Lungs: no acute respiratory distress; symmetrical chest wall expansion; clear breath sounds across all lung peña; no wheezing GI: bowel sounds present; Soft; nondistended; no ascites; no rebound/guarding Skin: no rashes, warm and dry Psych: Normal mood and affect Results & Data Results & Data Vital Signs (Past 12 Hours) Vital Signs Temp Pulse Resp BP Pulse Ox O2 Del Method 07/07/23 07:45 36.7 C 73 16 108/68 97 Room Air 07/06/23 22:09 Room Air Laboratory Results 07/07/23 06:57 07/07/23 06:57 Resident Activity Tracking Resident Involvement: Resident Care Provided Care Provided: Adult Hospital Medicine
[2023-07-07] MEDS: PANTOprazole 40 MG in SYRINGE 0 ML IV SCH (09:54)
[2023-07-07] MEDS: BACLOFEN 10 MG TAB PO SCH (09:54)
[2023-07-07] MEDS: POLYETHYLENE (MIRALAX) 17 GM PACK PO SCH (09:54)
--- NOTE | 2023-07-07 10:04 | Gastrointestinal Consultation ---
Date of Consultation July 07, 2023 Assessment & Plan (1) Dysphagia: (2) Globus sensation: (3) Acid reflux: (4) Constipation: Plan GI consulted for dysphagia which is likely secondary to her underlying MS. she also reports a long standing history of acid reflux that she does not take any medications to treat as an outpatient. she also reports issues with constipation. - continue with protonix 40mg IV BID. On discharge, would recommend starting oral protonix 40mg bid as her long standing reflux may also be contributing to dysphagia. - we discussed an EGD to further evaluate. she would be agreeable to having this done as an outpatient. - follow speech path recommendations on diet. - continue with miralax 17gm daily for constipation. - would recommend following up in our office as outpatient to assess how she does on PPI therapy. Supervising Physician Co-Signing Physician Notes Agree with BETTY Elizabeth as above Interviewed and examined patient and agree with above Abd: Soft, NT, ND, +BS Continue current therapy and supportive care History of Present Illness Reason for Consultation: Dysphagia Requesting Physician: Leida Gaytan MD Attending Physician: Maria Mejia DO History of Present Illness Patient is a 27 year old female with a past medical history of multiple sclerosis (diagnosed at age 15, though had symptoms long before this per patient) who presented to the ED with increasing symptoms of numbness of lower extremities over the last several months and she had new facial numbness as well. Symptoms were felt to be related to her long standing history of MS. GI consulted to see for dysphagia. She tells me she has noticed dysphagia since around February 2023. she will take small bites and chew foods well or otherwise she will have issues. she also admits to a long standing history of acid reflux that was present since she was a child. she does not use anything for reflux as an outpatient. she does appreciate some nausea. she also appreciates early satiety and epigastric discomfort. she has a baseline constipation which she tells me is chronic and only moves her bowels a few times a week. no blood in the stools or melena. She admits to an EGD long ago but is not sure why this was done or the results. Video Fluoroscopy was done 07/06/23 showing no aspiration. Speech recommended diet and felt she had mild oropharyngeal dysphagia secondary to numbness. EGD with dilation was recommended. she had eaten this morning. Allergies Allergy/AdvReac Type Severity Reaction Status Date / Time No Known Allergies Allergy Verified 06/10/23 08:59 Home Medications Medication Instructions Recorded Confirmed Type gabapentin 100 mg capsule 200 mg (2 x 100 mg) PO HS #60 caps 06/10/23 07/05/23 Rx ocrelizumab 30 mg/mL intravenous 600 mg IV Q6M 06/10/23 07/05/23 History solution (Ocrevus) baclofen 10 mg tablet 10 mg PO UD 07/05/23 07/05/23 History prednisone 20 mg tablet 20 mg PO BID #12 tabs 07/05/23 Rx Patient History Family History (Updated 06/10/23 @ 09:02 by Alda Blake) Mother Hypertension Cancer Father Hypertension Social History Smoking Status: Never smoker Hx Alcohol Use: No Hx Substance Use: No Preferred Language: Mongolian Communication Ability: Effective Communication Ability Comment: can converse in Palestinian well - reports difficulty reading/writing Palestinian Wrapper Sizer Required: No Beliefs That Will Affect Care: Hindu Hindu Beliefs: Gnosticist - vegan/vegetarian diet, common times of uatsdin , Spiritual Spiritual Healthcare Practices: prayer space and Cultural Cultural Beliefs: privacy needs, head coverings Current Living Situation: Spouse Current Living Situation Comment: lives w and 3 year old daughter Other Information That Helps Us Care for You: No Feels Safe at Home: Yes Safety Concerns: Feels Safe At This Time Assistive Devices: Cane Review of Systems Review of Systems: All systems reviewed & are unremarkable except as noted in HPI & below Physical Exam Constitutional: WD/WN, vitals as above Respiratory: normal respiratory effort, lungs clear to auscultation Cardiovascular: RRR, no murmur, no edema Gastrointestinal (Abdomen): mild epigastric tenderness, no guarding, soft, normal bowel sounds. Psychiatric: Orientation: alert and oriented x 3 Affect: euthymic affect Results & Data Vital Signs (Past 12 Hours) Vital Signs Temp Pulse Resp BP Pulse Ox O2 Del Method 07/07/23 07:45 98.1 F 73 16 108/68 97 Room Air 07/06/23 22:09 Room Air Coding Level of Care Code 17764 IN/OBS CONSULT LVL 4,60M Diagnoses Dysphagia R13.10 Globus sensation R09.A2 Acid reflux K21.9 Constipation K59.00
[2023-07-07] MEDS: ACETAMINOPHEN 1,000 MG/100 ML VIAL IV SCH (15:14)
[2023-07-07] MEDS: DULoxetine HCL 30 MG CAP PO SCH (18:00)
[2023-07-08] MEDS: GADOBUTROL 65ML VIAL IV ONE (00:10)
[2023-07-08 07:01] LABS: Basophils # (auto) 0.01 K/uL (0.00-0.20); Basophils % (auto) 0.1 %; Hematocrit (blood only) 36.1 % (37.0-47.0); Immature Granulocytes # (auto) 0.05 K/uL (0.01-0.20); Immature Granulocytes % (auto) 0.5 %; Lymphocytes # (auto) 0.78 K/uL (1.20-3.40); Lymphocytes % (auto) 8.5 %; Mean Corpuscular Hemoglobin 27.7 pg (25.0-34.0); Mean Corpuscular Hgb Conc 33.2 g/dL (32.0-36.0); Mean Corpuscular Volume 83.4 fL (80.0-100.0); Mean Platelet Volume 9.3 fL (9.4-12.4); Monocytes # (auto) 0.08 K/uL (0.11-0.59); Monocytes % (auto) 0.9 %; Neutrophils # (auto) 8.29 K/uL (1.40-6.50); Platelet Count 373 K/uL (130-400); RDW Coefficient of Variation 12.5 % (11.5-14.5); RDW Standard Deviation 38.5 fL (36.4-46.3); Red Blood Count 4.33 M/uL (4.20-5.40); White Blood Count 9.21 K/ul (4.8-10.8)
[2023-07-08 07:22] LABS: Albumin Globulin Ratio 1.9 (0.9-2); Albumin Level 4.2 gm/dl (3.4-5.0); BUN Creatinine Ratio 30.3 (10-20); Bilirubin,Total 2.5 mg/dl (0.2-1.0); Creatinine Clr Calc Pharmacy 100.9 ml/min; Est GFR (African American) 125.5 ml/min; Est GFR (Non-African American) 108.3 ml/min; Globulin 2.2 gm/dl (2.5-4.0); Potassium 4.4 mmol/L (3.5-5.1); Total Protein 6.4 gm/dl (6.0-8.3)
--- NOTE | 2023-07-08 07:37 | Magnetic Resonance Report ---
Exam(s): MRI L SPINE W/WO Contrast IV Amt: 6.5cc gadavist EXAM: MR Lumbar Spine Without and With Intravenous Contrast CLINICAL HISTORY: Reason for exam: MS flare, saddle parathesia. TECHNIQUE: Magnetic resonance images of the lumbar spine without and with intravenous contrast in multiple planes. CONTRAST: Patient received 6.5cc gadavist of IV contrast COMPARISON: No relevant prior studies available. FINDINGS: Vertebrae: Unremarkable. No acute fracture. Spinal cord: Unremarkable. Normal signal. No abnormal enhancement. Soft tissues: Unremarkable. DISCS/SPINAL CANAL/NEURAL FORAMINA: L1-L2: Unremarkable. No significant disc disease. No stenosis. L2-L3: Unremarkable. No significant disc disease. No stenosis. L3-L4: Unremarkable. No significant disc disease. No stenosis. L4-L5: Unremarkable. No significant disc disease. No stenosis. L5-S1: Unremarkable. No significant disc disease. No stenosis. IMPRESSION: Normal lumbar spine MRI. Electronically signed by: Tomi Arcos MD 07/08/23 07:36 AM
--- NOTE | 2023-07-08 07:43 | Magnetic Resonance Report ---
Exam(s): MRI T SPINE W/WO Contrast IV Amt: 6.5cc gadavist EXAM: MR Thoracic Spine Without and With Intravenous Contrast CLINICAL HISTORY: Reason for exam: MS flare, saddle parathesia. TECHNIQUE: Magnetic resonance images of the thoracic spine without and with intravenous contrast in multiple planes. CONTRAST: Patient received 6.5cc gadavist of IV contrast COMPARISON: No relevant prior studies available. FINDINGS: Vertebrae: Unremarkable. No acute fracture. Discs/spinal canal/neural foramina: No acute findings. No significant disc disease. No spinal canal stenosis. Spinal cord: Unremarkable. Normal signal. No abnormal enhancement. Soft tissues: Unremarkable. IMPRESSION: Normal thoracic spine MRI. Electronically signed by: Tomi Arcos MD 07/08/23 07:42 AM
--- NOTE | 2023-07-08 09:49 | Hospitalist Progress Note ---
Date of Service July 08, 2023 Assessment & Plan (1) Multiple sclerosis exacerbation: Plan: MS flare. Originally diagnosed by [facility], now follows with [facility] neurology (Dr. Chen). On Ocrevus infusions every 6 months - last infusion April 2023. Was on gabapentin, but there were significant side effects. No signs of VTE on bilateral dopplers. Steroids started in the ED. MRI Brain and C-spine without new/JASMINA enhancing lesions. Neuro consult - appreciate recs * 1000 mg IV methylpred x 5, then outpatient pred taper (60 mg x 2, 40 mg x2, 20 mg x2) * replete Vit D - 50,000 Q7D x 8 weeks, then recheck and likely switch to 2000 units daily * may benefit from psychiatric/psychologic referral outpatient - general anxiety in addition to diagnostic anxiety * PT/OT consult- appreciate recs and recommend rehabilitation * pain management as below * low back pain radiating into pelvis/saddle paraesthesias and new shooting pain in left leg below knee - MRI T-Spine L-Spine both negative. Pain could be attributable to limited ambulation and from increased periods of laying in bed (2) Hyperalgesia: Plan: Consider starting neuropathic pain agent like pre-gablin or duloxetine if scheduled baclofen and tylenol do not provide adequate relief. * Pain Regimen: * Toradol 15 mg Q6H PRN * Baclofen 10 mg TID REGINALD * Tylenol 1000 mg IV Q8H REGINALD * Dilaudid 0.5 and 1.0 mg Q3H PRN with pain scale (3) Dysphagia: Plan: Patient with dysphagia/globus sensation. Less likely MS related per neurology. Inpatient swallow study - mild oral dysphagia 2/2 oral numbness. GI consult - appreciate recs * Dysphagia slightly alleviated today as per patient. Recommend outpatient endoscopy for possible dilatation. * Continue PPI pantoprazole BID (4) Globus sensation: Plan: * See above. Plan Code status: full DVT ppx: lovenox FENGI: regular IDDSI 7 with thin liquids as tolerated Dispo: Med/Surg, likely d/c tomorrow Admission and Anticipated Discharge Date Admission Date: July 06, 2023 Supervising Physician Co-Signing Physician Notes Attending attestation Pt seen and examined in concert with Dr. Holley, . Dr. Mckeon. In agreement with the documented findings as noted in the resident documentation with any exceptions or additions as noted here. Does complain of new onset sharp shooting pain of the LLE c/w ongoing neuropathic complaints originating in the lumbar region without compressive pathology noted on MRI but doing well presently. Pain has begun to diminish overall. Patient is engaged with rehab services and open to working with [facility]. On examination, S1/S2 nl RRR no MCG. CTAB. Abd NT/ND BS+ve Multiple sclerosis with acute exacerbation - neurology consult - continue 1,000 mg IV methylpred to complete 5 day course, then convert to pred taper as noted above. For [facility] tomorrow. Globus sensation/dysphagia - continue PPI and follow up outpatient with GI for likely EGD. Else see resident documentation as noted. Subjective Today, patient reports that her pain and numbness in her upper extremities is much better. She reports persistent back pain near the L4/L5 region and a shooting pain in her left leg below the knee. Although her facial numbness is persistent, she reports that it is slightly alleviated and she has increasing sensation in her lips and feels that her ability to swallow and her throat numbness are better as well. She continues to have tongue numbness and lack of taste, but states that it is slightly improved from the past few days. Additionally, her bilateral leg numbness is persistent while the pain is slightly alleviated. Review of Systems Review of Systems: All systems reviewed & are unremarkable except as noted in HPI & below. Physical Exam Physical Exam: General: awake, alert, no acute distress Head: Normocephalic, atraumatic ENT: PERRL, EOMI, neck supple; no lymphadenopathy Neuro: alert and oriented x3 , normal mood and affect; cranial nerves 2-12 intact- patient reports double vision and visual blurring. Able to rotate head bilaterally and elevate shoulders. Decreased sensation to touch at face, particularly right side and bilateral lower extremities, particularly right lower extremities. 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 Due to increased generalized pain, neuro examination was limited. MSK: Pain upon palpation in the L4/L5 region, and shooting pain upon palpation on right lower extremities CV: RRR; S1/S2 normal; no murmurs/rubs/gallops; pulses intact and symmetric at radial, DP, and PT Lungs: no acute respiratory distress; symmetrical chest wall expansion; clear breath sounds across all lung peña; no wheezing GI: bowel sounds present; Soft; nondistended; no ascites; no rebound/guarding Skin: no rashes, warm and dry Psych: Normal mood and affect Results & Data Results & Data Vital Signs (Past 12 Hours) Vital Signs Temp Pulse Pulse Resp BP Pulse Ox O2 Del Method 07/08/23 07:46 37 C 65 12 130/72 96 Room Air 07/08/23 02:09 36.8 C 90 16 105/64 98 Room Air Laboratory Results 07/08/23 06:33 WBC 9.21 RBC 4.33 Hgb 12.0 Hct 36.1 L MCV 83.4 MCH 27.7 MCHC 33.2 RDW Std Deviation 38.5 RDW Coeff of Jonh 12.5 Plt Count 373 MPV 9.3 L Immature Gran % (Auto) 0.5 Neut % (Auto) 90.0 Lymph % (Auto) 8.5 [place] % (Auto) 0.9 Eos % (Auto) 0.0 Baso % (Auto) 0.1 Neut # (Auto) 8.29 H Lymph # (Auto) 0.78 L [place] # (Auto) 0.08 L Eos # (Auto) 0.00 Baso # (Auto) 0.01 Immature Gran # (Auto) 0.05 Sodium 134 L Potassium 4.4 Chloride 101 Carbon Dioxide 27 Anion Gap 6 BUN 23 Creatinine 0.76 Est Cr Clr Drug Dosing 100.9 Est GFR ( Amer) 125.5 Est GFR (Non-Af Amer) 108.3 BUN/Creatinine Ratio 30.3 H Glucose 140 H Calcium 9.0 Magnesium 2.0 Total Bilirubin 2.5 H AST 12 L ALT 8 Alkaline Phosphatase 39 Total Protein 6.4 Albumin 4.2 Globulin 2.2 L Albumin/Globulin Ratio 1.9 Diagnostic Findings Lumbar Spine MRI 07/07/23 09:03 Exam(s): MRI L SPINE W/WO Contrast IV Amt: 6.5cc gadavist EXAM: MR Lumbar Spine Without and With Intravenous Contrast CLINICAL HISTORY: Reason for exam: MS flare, saddle parathesia. TECHNIQUE: Magnetic resonance images of the lumbar spine without and with intravenous contrast in multiple planes. CONTRAST: Patient received 6.5cc gadavist of IV contrast COMPARISON: No relevant prior studies available. FINDINGS: Vertebrae: Unremarkable. No acute fracture. Spinal cord: Unremarkable. Normal signal. No abnormal enhancement. Soft tissues: Unremarkable. DISCS/SPINAL CANAL/NEURAL FORAMINA: L1-L2: Unremarkable. No significant disc disease. No stenosis. L2-L3: Unremarkable. No significant disc disease. No stenosis. L3-L4: Unremarkable. No significant disc disease. No stenosis. L4-L5: Unremarkable. No significant disc disease. No stenosis. L5-S1: Unremarkable. No significant disc disease. No stenosis. IMPRESSION: Normal lumbar spine MRI. Electronically signed by: Tomi Arcos MD 07/08/23 07:36 AM Thoracic Spine MRI 07/07/23 09:03 Exam(s): MRI T SPINE W/WO Contrast IV Amt: 6.5cc gadavist EXAM: MR Thoracic Spine Without and With Intravenous Contrast CLINICAL HISTORY: Reason for exam: MS flare, saddle parathesia. TECHNIQUE: Magnetic resonance images of the thoracic spine without and with intravenous contrast in multiple planes. CONTRAST: Patient received 6.5cc gadavist of IV contrast COMPARISON: No relevant prior studies available. FINDINGS: Vertebrae: Unremarkable. No acute fracture. Discs/spinal canal/neural foramina: No acute findings. No significant disc disease. No spinal canal stenosis. Spinal cord: Unremarkable. Normal signal. No abnormal enhancement. Soft tissues: Unremarkable. IMPRESSION: Normal thoracic spine MRI. Electronically signed by: Tomi Arcos MD 07/08/23 07:42 AM
[2023-07-09 07:58] LABS: Est GFR (African American) 136.2 ml/min; Est GFR (Non-African American) 117.6 ml/min
--- NOTE | 2023-07-09 09:13 | Discharge Summary ---
Date of Service July 09, 2023 Admission HPI Per Admitting Provider Anjelica Marquez Arun Bonilla is a 27 year-old female with a past medical history of multiple sclerosis (diagnosed at age 15) she has had increasing symptoms of numbness of lower extremities over the last several months and since yesterday she has had new facial numbness as well. Typically experiences more right sided with leg and upper extremity weakness/numbness, however yesterday she started experiencing facial and tongue numbness for the first time. These symptoms have been constant since they started yesterday. Also endorses worsening right lower extremity pain which has not been relieved by any medications given in the ED. She states that she follows with [facility] as well as locally with Dr. Chen. Notes that she was started on gabapentin after her recent neurology appointment but stopped it as it seemed to make her symptoms worse. She states she has lost several pounds in the last few weeks to months as it has felt more difficult to swallow- she has been able to drink liquids but solid food has been difficult. Also endorses ongoing double vision/blurry vision. 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 She states she has a sister and [id number] who live locally. States that the end of her semester was difficult as her symptoms have been progressively worsening since February. She recalls that there was a oral presentation that she was unable to complete due to difficulty with articulation which has also been progressive for weeks to months. States that she typically uses a cane for ambulation. ED Course: -Right lower extremity venous duplex -MRI Brain -Methylpred 500mg IV -Morphine, Toradol Admission Exam Per Admitting Provider Constitutional: well developed and well nourished; no acute distress Eyes: + anicteric sclerae and PERRL; no conjun ctival abnormality Endorses ongoing double vision ENMT: Ears: no external ear abnormality Nose: no external nose abnormality moist mucous membranes Respiratory: normal respiratory effort, lungs clear to auscultation Cardiovascular: Rate/Rhythm: regular rhythm and + tachycardic Extremities: no edema Gastrointestinal (Abdomen): Inspection/Auscultation: no abdominal edema Percussion/Palpation: abdomen soft; abdomen nontender Musculoskeletal: Spine: + pain with cervical ROM Moves all limbs independently, with discomfort Skin: no rashes, warm and dry Neurologic: awake Cranial Nerves: PERRL, EOM intact bilaterally, normal hearing, able to rotate head bilaterally and able to elevate shoulders bilaterally Decreased sensation at face, bilateral lower extremities. 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 Neuro exam limited by increased pain with all elements of examination. Psychiatric: A+Ox3, euthymic affect Principal Diagnosis Multiple sclerosis flare Discharge Exam General: awake, alert, no acute distress HEENT: Normocephalic, atraumatic, EOMI, moist mucous membranes Neuro: alert and oriented x3 , normal mood and affect; cranial nerves 2-12 intact. Able to rotate head bilaterally and elevate shoulders. Decreased sensation to touch at face, particularly right side and bilateral lower extremities, particularly right lower extremities but improved per patient. 4/5 strength of b/l LE MSK: Pain upon palpation in the L4/L5 region, and shooting pain upon palpation on right lower extremities CV: RRR; S1/S2 normal; no murmurs/rubs/gallops Lungs: no acute respiratory distress; symmetrical chest wall expansion; clear breath sounds across all lung peña; no wheezing Psych: Normal mood and affect Discharge Data Allergies Allergy/AdvReac Type Severity Reaction Status Date / Time No Known Allergies Allergy Verified 06/10/23 08:59 Consultations 07/05/23 22:55 ED Decision to Admit Stat 07/06/23 02:35 Consult Neurology Routine 07/07/23 07:22 Consult Gastroenterology Routine Ordered Studies 07/05/23 17:48 MRI Brain [MR brain wo/w con] Stat 07/05/23 22:52 US venous doppler LE RT Stat 07/06/23 01:02 MRI Cervical [MR cervical spine wo/w con] Urgent 07/06/23 13:00 Fluoro video [FL video swallow] Routine 07/07/23 09:03 MRI Spine [MR lumbar spine wo/w con] Stat MRI Spine [MR thoracic spine wo/w con] Stat Hospital Course (1) Multiple sclerosis exacerbation: MS flare. Originally diagnosed by [facility], now follows with [facility] neurology (Dr. Chen). On Ocrevus infusions every 6 months - last infusion April 2023. Was on gabapentin, but there were significant side effects. No signs of VTE on bilateral dopplers. Steroids started in the ED. MRI Brain and C-spine without new/JASMINA enhancing lesions. Neuro consult - appreciate recs * Low back pain radiating into pelvis/saddle paraesthesias and new shooting pain in left leg below knee on 07/06- MRI T-spine L-spine both negative. Pain attributed to limited ambulation and from increased periods of laying in bed * 1000 mg IV methylprednisolone daily x5 completed on 07/08 prior to discharge, then prednisone taper taper (60 mg x 2, 40 mg x2, 20 mg x2) to be completed at [facility] * replete Vit D - 50,000 Q7D x 8 weeks (initiated on 07/05), then recheck Vit D level and likely switch to 2000 units daily * may benefit from psychiatric/psychologic referral outpatient - general an xiety * PT/OT consult- appreciate recs and recommend rehabilitation * pain management as below Discharged to [facility] rehab on 07/08 (2) Hyperalgesia: Pain regimen during hospitalization * Toradol 15 mg Q6H PRN * Baclofen 10 mg TID REGINALD- chronic home medication * Tylenol 1000 mg IV Q8H REGINALD * Duloxetine 30 mg PO daily (started 07/06)- to be continued on discharge as maintenance medication * Dilaudid 0.5 and 1.0 mg Q3H PRN with pain scale (3) Dysphagia: Patient with dysphagia/globus sensation. Less likely MS related per neurology. Inpatient swallow study - mild oral dysphagia 2/2 oral numbness. GI consult - appreciate recs * Dysphagia slightly alleviated by discharge as per patient. Recommend outpatien t endoscopy for possible dilatation. * Continue PPI pantoprazole 40 mg BID on discharge (4) Globus sensation: * See above. Total Time Total Time Spent Total Time Spent (In Minutes): 40 Discharge Plan Discharge Items Patient Disposition: Transfer Inpatient Rehab Fac Reason For Visit: MS FLARE Discharge Diagnosis: Multiple sclerosis flare Condition on Discharge: Good Activity: Resume your previous activity Non-emergency contact: Primary Care Provider and Neurologist Call non-emergency contact if: your symptoms worsen Follow-up/Referrals: David Chen MD [Physician] - [facility] [Primary Care Provider] - Leida Gaytan MD [Resident] - Diet: Regular Addtl Attending Provider Instructions: MS flare. Originally diagnosed by [facility], now follows with [facility] neurology (Dr. Chen). On Ocrevus infusions every 6 months - last infusion April 2023. Was on gabapentin, but there were significant side effects. No signs of VTE on bilateral dopplers. Steroids started in the ED. MRI Brain and C-spine without new/JASMINA enhancing lesions. Neuro consult - appreciate recs * Low back pain radiating into pelvis/saddle paraesthesias and new shooting pain in left leg below knee on 07/06- MRI T-spine L-spine both negative. Pain attributed to limited ambulation and from increased periods of laying in bed * 1000 mg IV methylprednisolone daily x5 completed on 07/08 prior to discharge, then prednisone taper taper (60 mg x 2, 40 mg x2, 20 mg x2) to be completed at [facility] * replete Vit D - 50,000 Q7D x 8 weeks (initiated on 07/05), then recheck Vit D level and likely switch to 2000 units daily * may benefit from psychiatric/psychologic referral outpatient - general anxiety * PT/OT consult- appreciate recs and recommend rehabilitation * pain management as below Discharged to [facility] rehab on 07/08 Pain regimen during hospitalization * Toradol 15 mg Q6H PRN * Baclofen 10 mg TID REGINALD- chronic home medication * Tylenol 1000 mg IV Q8H REGINALD * Duloxetine 30 mg PO daily (started 07/06)- to be continued on discharge as maintenance medication * Dilaudid 0.5 and 1.0 mg Q3H PRN with pain scale Patient with dysphagia/globus sensation. Less likely MS related per neurology. Inpatient swallow study - mild oral dysphagia 2/2 oral numbness. GI consult - appreciate recs * Dysphagia slightly alleviated by discharge as per patient. Recommend outpatient endoscopy for possible dilatation. * Continue PPI pantoprazole 40 mg BID on discharge Pending Studies at Discharge: No Stand-Alone Forms: Work/School Release (ED), [facility], Work/School Release Skilled Items Patient informed of condition?: Yes DNR: No Discharge Level of Care: Acute rehab Communicable Disease: No Discharge Prognosis: Stable Lines: None Urinary Catheter: No Medications and DC Order Prescriptions: New prednisone 20 mg tablet 20 mg PO BID Qty: 12 0RF Rx Instructions: Please take 1 tablet by mouth 3 times daily on days 1 and 2. Please take 1 tablet by mouth twice daily on days 3 through 4. Please take 1 tablet once daily by mouth on days 5 and 6 pantoprazole 40 mg tablet,delayed release (DR/EC) 40 mg PO BID Qty: 60 1RF duloxetine 30 mg capsule,delayed release(DR/EC) 30 mg PO DAILY Qty: 30 1RF Continued Ocrevus 30 mg/mL solution 600 mg IV Q6M gabapentin 100 mg capsule 200 mg PO HS Qty: 60 2RF baclofen 10 mg tablet 10 mg PO UD Discharge Orders: Discharge Order (Routine); Ordered 07/09/23 Ordered By: Karyn Hudson Admission Data Admit Date/Time: 07/06/23 01:00 Attending Provider: Eyal Menjivar Admit Provider: Chel Raygoza Primary Care Provider: [facility] Other Providers: Manny Fernandez; Fred Elder; [place] [employer]; [facility] Supervising Physician Co-Signing Physician Notes Attending attestation Pt seen and examined in concert with Dr. Hudson. In agreement with the documented findings as noted in the resident documentation with any exceptions or additions as noted here. Ongoing improvement of radicular and diffuse pain with steroid therapy. Initially, patient and family declined transition to rehab services but were agreeable following further discussion. On examination, S1/S2 nl RRR no MCG. CTAB. Abd NT/ND BS+ve Multiple sclerosis with acute exacerbation - neurology consult - complete 1,000 mg IV methylpred today and transition to pred taper. Globus sensation/dysphagia - continue PPI and follow up outpatient with GI for likely EGD. Else see resident documentation as noted. Total attending physician time spent with this patient's care on the day of discharge: 35 minutes.
[2023-07-09] MEDS: methylPREDNISolone 1,000 MG in DEXTROSE 5% 250 ML IV STA (14:51)
[2023-07-09] MEDS ORDERED: methylPREDNISolone 10 mg/mL (For Ped Dose < 7mg) IV ONE (16:00)
== END 2023-07-09 17:55 | DRG 60 ==
LOC: ED 17:16 → 3W 07-06 01:00 → SUATTDRO 07-06 01:00 → 3W 07-06 01:58

== ENCOUNTER 2024-03-02 02:53 | Observation (INO) ==
[2024-03-02] MEDS: SODIUM CHLORIDE 0.9% 1,000 ML IV SCH ×2 (03:13→06:43)
--- NOTE | 2024-03-02 03:29 | Obstetrical Progress Note ---
Date of Service March 02, 2024 Assessment & Plan (1) Influenza A: Plan: 28 yo at 33 6/7 wga presents for eval due to ctx, flu a VSS, afebrile and normotensive in ER NST reactive. Ctx noted and pt does feel them, reports eating and drinking less due to feeling unwell. SVE c/50/-2. Will start IV and give fluids, already received tylenol in er about 1.5hrs ago. UA appears contaminated. Will plan to re-eval in a few hours Subjective 28 yo at 33 6/7 wga presents for evaluation after being seen in ER. Seen in ER due to c/o fever/chill, back pain, flu like s/s. She was +flu A in the ER, on the NST they noted contractions so recommended to come to L&D. Notes her symptoms began yesterday after her US, no sick contacts as far as she is aware. 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
[2024-03-02 06:42] VITALS: BP 120/71
[2024-03-02 06:43] VITALS: PULSE 85
[2024-03-02 06:50] VITALS: RESP 18; TEMP 97.9
--- NOTE | 2024-03-02 07:32 | Obstetrical Progress Note ---
Date of Service March 02, 2024 Assessment & Plan (1) Influenza A: Plan: 28 yo at 33 6/7 wga presents for eval due to ctx, flu a VSS, afebrile and normotensive in ER NST remains reactive. SVE unchanged. Notes ctx improved with fluids but slightly worsened once done. Suspect just very dehydrated based on UA, will give another bag of fluid and ok for dc home after Subjective Delayed entry due to care. Pt reports ctx still there but more irregular and less uncomfortable. +FM; denies LOF, VB Physical Exam Genitourinary: OB Exam Monitor Tracing: + external FHT monitor used, + external uterine monitor used (q5-10) and + category I (140/mod/+accel/-decel) SVE c/50/-2, unchanged Results & Data Vital Signs (Past 12 Hours) Vital Signs Temp Pulse Pulse Resp BP BP 03/02/24 06:40 97.9 F 18 03/02/24 06:40 85 120/71 03/02/24 04:30 83 126/71 03/02/24 03:23 98.8 F 20 03/02/24 03:00 88 125/65 PG Care Time/CCT Total # of Minutes Spent Total Time Spent with Patient: Total time spent is greater than 50% in coordination of care (as documented) at patient's floor/unit and/or counseling patient: Coding Level of Care Code 01985 OP VST EST LOW 20 MIN Diagnoses Influenza A J10.1 CPT Codes Misx Procedure Codes - 02784 NST: 97402 NST (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
== END 2024-03-02 09:25 | disposition home or self-care (01) ==
LOC: OPB 02:53 → 4S1 02:53

== ENCOUNTER 2024-03-30 17:26 | Inpatient (IN) ==
[2024-03-30] MEDS ORDERED: LIDOCAINE 1% LOCAL 20 ML VIAL INFIL PRN (17:55)
[2024-03-30] MEDS: LACTATED RINGER'S 1,000 ML IV PRN (18:00)
--- NOTE | 2024-03-30 18:01 | History & Physical Report ---
Date of Service March 30, 2024 Assessment & Plan (1) growth restriction: (2) Multiple sclerosis affecting : Plan 28 yo at 37 6/7 wga presents in labor VSS Fetus cat 1 Labor - augment prn GBS neg desires epidural Admission and Anticipated Discharge Date Admission Date: March 30, 2024 History of Present Illness Chief Complaint: ctx Primary Care Provider: BOB PCP 28 yo at 37 6/7 wga presents from clinic in labor. +FM; denies LOF, VB. Ctx slowly worsening over the day, worse since clinic. 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 current denies hx stis Allergies Allergy/AdvReac Type Severity Reaction Status Date / Time No Known Allergies Allergy Verified 03/30/24 16:19 Home Medications Medication Instructions Recorded Confirmed Type docosahexaenoic acid [ DHA] 1 tab PO DAILY 12/28/23 03/30/24 History breast pump #1 ea 02/10/24 03/30/24 Rx Patient History Medical History Acid reflux Varicella vaccination Multiple sclerosis Per [facility] OB notes "notes concerns re epidural with MS and pain, tolerated one in the last but interested in anesthesia consult" Surgical History S/P hernia surgery umbilical Family History Mother Hypertension Colorectal cancer Father Hypertension Grandmother (Maternal) Diabetes Heart disease Denies family history of Ovarian cancer Breast cancer Social History (Updated 03/30/24 @ 17:41 by Carina Baez RN) Smoking Status: Never smoker Do You Dip or Chew Tobacco: No; Hx Alcohol Use: No Hx Substance Use: No Preferred Language: Hebrew Communication Ability: Effective Communication Ability Comment: can converse in Azeri well - reports difficulty reading/writing Azeri Bingo Checker Required: No Beliefs That Will Affect Care: Lutheran Lutheran Beliefs: Mandaeism - vegan/vegetarian diet, common times of gnosticist , Spiritual Spiritual Healthcare Practices: prayer space and Cultural Cultural Beliefs: privacy needs, head coverings marital status: marital status details: Anna Marie (28) [phone] Current Living Situation: Spouse and Family Current Living Situation Comment: lives w and 3 year old daughter, no pets current occupational status: 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 occupation: [employer] 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 Other Information That Helps Us Care for You: No Feels Safe at Home: Yes Assistive Devices: Cane Physical Exam Genitourinary: Manual OB Exam: + cervical dilation 5 cm (bulging bag), + cervical effacement 90% and + station -2 OB Exam Monitor Tracing: + external FHT monitor used, + external uterine monitor used (q4) and + category I (130/mod/+accel/-decel) Results & Data Vital Signs (Past 12 Hours) Vital Signs Temp Pulse Resp BP 03/30/24 17:42 98.1 F 84 18 136/85 03/30/24 17:34 84 136/85 Laboratory Results OB Labs: Blood Type B Positive 11/02/23 Antibody Screen NEGATIVE 11/02/23 Hgb 11.8 g/dl (12.0-16.0) L 02/23/24 Hct 36.0 % (37.0-47.0) L 02/23/24 MCV 85.1 fL (80.0-100.0) 02/23/24 Plt Count 345 K/uL (130-400) 02/23/24 Rubella IgG Antibody Immune (Immune) 11/02/23 Treponema pallidum Ab Negative (Negative) 01/25/24 Hep Bs Antigen Negative (Negative) 11/02/23 Hepatitis C Antibody Negative (Negative) 11/02/23 HIV 1&2 Ab/P24 Ag 4thGn Negative (Negative) 11/02/23 Glucose 1 Hr 50 gm 109 mg/dl (70-130) 01/25/24 OB Optional Labs: Chlamydia trachomatis RNA Not Detected (NotDetected) 11/02/23 Neisseria gonorrhoeae RNA Not Detected (NotDetected) 11/02/23 Thyroid Stimulating Hormone (TSH) 1.578 uIu/ml (0.300-4.500) 11/30/23 GBS neg Diagnostic Findings 03/22 EFW 8%, AC 6%, ant plac Coding Level of Care Code None Diagnoses growth restriction Multiple sclerosis affecting O99.350; G35
[2024-03-30 18:31] LABS: Hematocrit (blood only) 34.2 % (37.0-47.0); Hemoglobin 11.3 g/dl (12.0-16.0); Mean Corpuscular Hemoglobin 26.6 pg (25.0-34.0); Mean Corpuscular Volume 80.5 fL (80.0-100.0); Mean Platelet Volume 9.1 fL (9.4-12.4); Platelet Count 371 K/uL (130-400); RDW Coefficient of Variation 13.6 % (11.5-14.5); RDW Standard Deviation 39.4 fL (36.4-46.3); Red Blood Count 4.25 M/uL (4.20-5.40); White Blood Count 7.29 K/ul (4.8-10.8)
[2024-03-30] MEDS: LIDOCAINE 2%/EPINEPHRINE 1:200,000 20 ML PF ONE (18:46)
[2024-03-30] MEDS: BUPIVACAINE 0.25% PF 30 ML VIAL ONE (18:46)
[2024-03-30] MEDS: ePHEDrine sulfate 50 MG/ML AMP ONE (18:48)
[2024-03-30] MEDS: fentaNYL citrate PF 100 MCG/2 ML VIAL ONE (18:48)
[2024-03-30] MEDS: SODIUM CHLORIDE 0.9% PF INJ 10 ML VIAL ONE (18:49)
[2024-03-30] MEDS: fentANYL 2 MCG/ML BUPIVacaine 0.125%-NSS 100ML BAG ONE (18:49)
[2024-03-30] MEDS: OXYTOCIN 30 UNITS/NSS 30 UNITS/500 ML BAG IV PRN (18:50)
--- NOTE | 2024-03-30 19:02 | Delivery Summary ---
Vaginal Delivery Summary Date of Service March 30, 2024 Vaginal Delivery Summary [facility] PREOPERATIVE DIAGNOSIS: 1. Single intrauterine at 37 6/7 wga 2. FGR 3. Multiple Sclerosis 4. Labor POSTOPERATIVE DIAGNOSIS: 1. Single intrauterine at 37 6/7 wga 2. FGR 3. Multiple Sclerosis 4. Labor 5. Delivered PROCEDURE: 1. Normal spontaneous vaginal delivery. SURGEON: Yarely Lake MD ANESTHESIA: None QUANTITATIVE BLOOD LOSS: 50 mL FLUIDS: Continuous LR. URINE OUTPUT: None. COMPLICATIONS: None. CONDITION: Stable. INDICATIONS: 28 yo at 37 6/7 wga presented for evaluation due to contractions and found to be 4cm so sent to L&D. She was 5cm on arrival to L&D and admitted. Just before sitting for epidural, she underwent SROM. While epidural was being attempted, she noted that she had to push and was found to be 10cm FINDINGS: A viable female , weight pending with Apgars of 7 and 9 at 1 and 5 minutes respectively. SPECIMEN: Cord blood OPERATIVE REPORT: The patient progressed to 10 cm, 100% effaced and +2 station, pushed over intact perineum with anesthesia to deliver a viable female , weight and Apgars as above. Head of delivered in NORMA position. Body cord was delivered through. Body and shoulders were delivered without difficulty. was delivered to maternal abdomen and nursing staff. Delayed cord clamping was performed for 60 seconds. Cord was clamped and cut. Cord blood was obtained. Placenta delivered spontaneously intact with 3-vessel cord. IV oxytocin and fundal massage were given for excellent hemostasis. Vagina, cervix, perineum, and placenta were inspected. Hemostatic 1st degree and right per iurethral abrasions did not need to be repaired. Sponge and needle counts correct x2. No sponges were left behind. Mother and stable in immediate period. [facility] Vaginal Delivery Charge Vaginal Delivery Codes: 20268 global code for the antepartum, delivery, and post- Delivery Type Details: [facility]
[2024-03-30] MEDS ORDERED: DIPHTHER/TETAN/PERTUS Vaccine (Tdap, Adol/Adult) 0.5mL IM ONE (19:06)
[2024-03-30] MEDS ORDERED: bisacodyL 10 MG SUPP PR PRN (19:06)
[2024-03-30] MEDS ORDERED: OXYTOCIN 30 UNITS/NSS 30 UNITS/500 ML BAG IV PRN (19:06)
[2024-03-30] MEDS ORDERED: HYDROCORTISONE ACETATE 25 MG SUPP PR PRN (19:06)
[2024-03-30] MEDS: IBUPROFEN 600 MG TAB PO PRN (21:02)
[2024-03-30] MEDS: DOCUSATE SODIUM 100 MG CAP PO SCH (21:03)
[2024-03-30] MEDS: BENZOCAINE 20% SPRY 85 APPLN/85 GM CAN EXT PRN (21:03)
[2024-03-31] MEDS: ACETAMINOPHEN 325 MG TAB PO PRN (07:24)
[2024-03-31] MEDS: PRENATAL VITAMIN 1 TAB PO SCH (07:25)
[2024-03-31] MEDS: FERROUS SULFATE 325 MG TAB PO SCH (07:26)
--- NOTE | 2024-03-31 07:33 | Obstetrical Progress Note ---
Date of Service March 31, 2024 Assessment & Plan (1) Vaginal delivery: Plan: 1st PPD Mild, intermittent Lochia: Moderate Diet: Regular Ob diet ? MS flare ? Coccygodynia ?Nerve pinching Try some ice therapy, lay in right. Walk around Needs further evaluation Will follow s/s and possible neurology evaluation (2) Multiple sclerosis affecting : Plan: Baseline hyperalgesia and numbness in legs was present. But new pain in back and left leg. ? MS flare. Possible neurology evaluation Admission and Anticipated Discharge Date Admission Date: March 30, 2024 Supervising Physician Co-Signing Physician Notes Resident Physician Supervision Note: I interviewed and examined the patient. Discussed with Dr. Scruggs and agree with findings and plan as documented in the note. Any exceptions or clarifications are listed here: PP1 s/p , c/b MS. This AM, noted tailbone pain when sitting down after second bathroom trip. Was laying on left side but then began noting sharp pain with touch, but not actually feeling the touch itself. The pain does radiate from the back, went back to check on her after moving and was bilateral. No worsened weakness from her MS though. Reviewed case with neuro who noted likely lumbosacral nerve irritation rather than a true MS flare - would plan for pain control for now but to contact if worsens or weakness worsens. Documented By: Yarely Lake MD Subjective 1st Day following in 28 years at 37 week POG. C/O Pain in tailbone, numbness and pain in left leg. h/O MS, had some degree of numbness before as well but pain in new. Walked to bathroom but painful. Needed extra help/ walker as well. No new fever, chills, SOB Baby doing well. Pain: Mild, intermittent Lochia: Moderate Diet: Regular Ob diet Peeing: Normal, no bladder distension Ambulating but painful. Review of Systems Review of Systems: No SOB, chest pain, leg pain No dizziness, headache, palpitation No Blurring of vision , fever Physical Exam Physical Exam: General: Alert and oriented. No acute distress. CVS: S1 S2+ No murmurs, regular rhythm. Respiratory: CTA bilaterally. No rhonchi, wheezes, or crackles. No increased work of breathing. Abdomen: Bowel sound +. Soft, nontender Uterus: Fundus firm and palpable few cm below the umbilicus. MSK: Tenderness in coccyx noted, left leg numbness and tenderness, mild edema. No deep calf pain. Results & Data Vital Signs (Past 12 Hours) Vital Signs Temp Pulse Pulse Resp BP BP Pulse Ox 03/31/24 03:20 36.9 C 75 16 108/68 95 03/30/24 23:16 37.1 C 70 16 129/74 98 03/30/24 21:48 36.8 C 69 16 124/79 96 03/30/24 21:00 18 03/30/24 20:56 86 133/66 03/30/24 20:41 83 136/67 03/30/24 20:30 18 03/30/24 20:26 71 129/63 03/30/24 20:11 71 134/82 03/30/24 20:00 18 03/30/24 19:56 68 125/71 03/30/24 19:45 18 03/30/24 19:41 74 120/65 03/30/24 19:34 78 170/74 H 03/30/24 19:30 18 O2 Del Method 03/31/24 03:20 Room Air 03/30/24 23:16 Room Air 03/30/24 21:48 Room Air 03/30/24 21:00 03/30/24 20:56 03/30/24 20:41 03/30/24 20:30 03/30/24 20:26 03/30/24 20:11 03/30/24 20:00 03/30/24 19:56 03/30/24 19:45 03/30/24 19:41 03/30/24 19:34 03/30/24 19:30 Resident Activity Tracking Resident Involvement: Resident Care Provided Care Provided: OB Delivery
--- NOTE | 2024-03-31 08:22 | Anesthesia Procedure Note ---
Date of Service March 31, 2024 Anesthesia Post Epidural Note Vital Signs Vital Signs: Temp Pulse Resp BP Pulse Ox O2 Del Method 36.9 C 75 16 108/68 95 Room Air 03/31/24 03:20 03/31/24 03:20 03/31/24 03:20 03/31/24 03:20 03/31/24 03:20 03/31/24 03:20 Pain Intensity Bilateral Perineal: Pain Intensity: 6 Notes Mental Status: alert / awake / arousable and participated in evaluation Nausea / Vomiting: adequately controlled Pain: adequately controlled Airway Patency, RR, SpO2: stable & adequate BP & HR: stable & adequate Hydration State: stable & adequate Neuraxial Anesthesia: was administered and sensory block resolved Anesthetic Complications: no major complications apparent and Pt Satisfied with anesthetic care Epidural: Removed without complications and With tip intact
[2024-03-31] MEDS: KETOROLAC 30 MG/ML VIAL IV PRN (11:18)
--- NOTE | 2024-03-31 14:52 | Neurology Consultation ---
Date of Consultation March 31, 2024 Assessment & Plan (1) Multiple sclerosis: (2) Numbness and tingling of both legs: (3) Lumbar radicular pain: Plan This patient has a longstanding history of multiple sclerosis on Ocrevus who has been fairly stable but does have a significant amount of disability for age. She has lower extremity pain and spasms with weakness and gait disturbance. She has double vision. All of these are chronic condition. However, after vaginal delivery last evening she is worse with her palm and dysesthesias in the lower extremities. I am not certain whether the numbness up to T10 is new or old with a more prominent expression since delivery. Muffled hearing in the left ear is likely secondary to ketorolac given the timing of the symptom of the injection. Therefore, I am not certain she has had an actual new MS flareup or just some of her old symptoms coming out with the stress of delivery. She is planning on breast-feeding. One third of MS patient's who undergo vaginal delivery can exacerbate their MS. There is a fourfold protection of this with breast-feeding compared to bottle feeding. Recommendations: 1. Hold on testing and treatment from a neurologic standpoint for now. We have elected to see how she does the rest of today (although I will be contacted if she becomes worse or has new issues). 2. If she is worse or has persistent symptoms I may consider MRI of the thoracic and lumbar spine (with and without contrast). At this time there is no indication for cervical spine or brain MRI. 3. Consider steroids but I would hold on this until I am convinced she had an actual flareup. I will try to avoid steroids in the short-term as she is trying to heal, if possible. 4. I will follow while she is in hospital 5. The patient should follow-up with neurology as an outpatient about 2 to 3 weeks after discharge with a neurology PA (and Dr. Chen). Overall, I spent a total of 110 minutes with this case including review of records, review of MRI films, direct evaluation of the patient at bedside, report generation, and discussion of the case with the patient and her family and RN at bedside, and Dr. Lea including differential diagnosis and treatment options. History of Present Illness Reason for Consultation: Patient is a 28-year-old, who was asked to see the request of Dr. Lea, for neurologic evaluation regarding MS and new symptoms . Requesting Physician: Dr. Lea Attending Physician: Yarely Lake MD History of Present Illness Patient is accompanied by her sister and mother. 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 She was diagnosed in 2013 with multiple sclerosis with original symptoms being right-sided weakness and double vision/blurry vision. Initial evaluation revealed multiple lesions in her brain and cervical spine. Originally she was on Tecfidera, Gilenya, and repeat a but since 2016 she has been on Ocrevus every 6 months. She has done fairly well on this medication with little to no flareups or deterioration. She was followed by neurology at [facility] and MRIs of the brain and cervical spine at the [facility] in April 2023 showed multiple lesions on the brain and cervical spine with no new lesions compared to February 2022. She started seeing Dr. Chen in May 2023 for follow-up locally. However, in June of 2023 she had increased numbness in her lower extremities, right greater than left side and right facial numbness with tongue numbness. She was given IV Solu-Medrol protocol and improved. MRI of the brain and cervical spine with and without contrast at that time revealed multiple spots but no enhancing lesions with contrast. She has been doing about the same since then although the lower extremity dysesthesias and pain have returned. She gets spasms in her legs either right side, left side or both. It is a tightness where it hits and she cannot move for a while. The duration is variable. She tends not to have symptoms in her arms. She has double vision as before. Her speech and mentation have been good and she does not have incontinence of urine. She can walk with a walker except when the spasms are severe and that she uses a wheelchair. Delivered her second baby at [id number] 30. This was a vaginal delivery and was very precipitous. An epidural was attempted but no medication was able to be put in. She had increased spasms and pain in her lower extremities with increased numbness at the time of delivery although she is not convinced there was new weakness. The left leg was worse than the right. After delivery she had significant low back pain which has continued into this morning. She has sharp pains starting in her low back and diffuse pains in left greater than right leg circumferentially down to the foot. She has numbness from her waist down to her toes bilaterally. She feels that this afternoon the pain and dysesthesias in the right leg are less than they were before but the left leg is about the same. She has no incontinence of urine. She can still walk with a walker but favors her right leg. There is no family history of MS or other significant neurologic conditions. The patient received a dose of ketorolac which helped her right lower extremity pain some but gave her some muffled hearing/unusual tinnitus in the left ear. The patient denies tinnitus or ear pain currently but does have some muffled hearing on the left. Allergies Allergy/AdvReac Type Severity Reaction Status Date / Time No Known Allergies Allergy Verified 03/30/24 16:19 Home Medications Medication Instructions Recorded Confirmed Type docosahexaenoic acid [ DHA] 1 tab PO DAILY 12/28/23 03/30/24 History breast pump #1 ea 02/10/24 03/30/24 Rx Patient History Medical History Acid reflux Varicella vaccination Multiple sclerosis [facility] "notes concerns re epidural with MS and pain, tolerated one in the last but interested in anesthesia consult" Surgical History S/P hernia surgery umbilical Family History Mother Hypertension Colorectal cancer Father Hypertension Grandmother (Maternal) Diabetes Heart disease Denies family history of Ovarian cancer Breast cancer Social History Smoking Status: Never smoker Do You Dip or Chew Tobacco: No; Hx Alcohol Use: No Hx Substance Use: No Preferred Language: Irish Communication Ability: Effective Communication Ability Comment: can converse in American well - reports difficulty reading/writing American Whale Fisherman Required: No Beliefs That Will Affect Care: Holiness Holiness Beliefs: Latter-Day - vegan/vegetarian diet, common times of sabianism , Spiritual Spiritual Healthcare Practices: prayer space and Cultural Cultural Beliefs: privacy needs, head coverings marital status: marital status details: Anna Marie (28) [phone] Current Living Situation: Spouse and Family Current Living Situation Comment: lives w and 3 year old daughter, no pets current occupational status: 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 occupation: [employer] 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 Other Information That Helps Us Care for You: No Feels Safe at Home: Yes Assistive Devices: Cane Review of Systems Constitutional: + fatigue; no fever and no weakness Eyes: + diplopia; no eye pain and no worsening vision Ear, Nose, Mouth, Throat: no ear pain, no tinnitus, no hearing loss, no dizziness, no snoring, no hoarseness and no dysphagia Respiratory: no cough and no dyspnea Cardiovascular: no chest pain, no palpitations and no lightheadedness Gastrointestinal: no abdominal pain, no nausea and no vomiting Genitourinary: no dysuria, no urinary frequency and no urinary incontinence Musculoskeletal: + back pain and + radicular pain; no nec k pain, no joint pain and no myalgia Integumentary: no rash and no lesions Neurologic: + localized weakness and + numbness; no gait abnormality, no generalized weakness, no tingling, no tremor(s), no abnormal movements, no headache(s), no abnormal speech, no confusion and no memory loss Psychiatric: no depression, no irritability, no anxiety, no difficulty concentrating, no confusion and no hallucinations Endocrine: no fatigue and no flushing Hematologic / Lymphatic: no easy bleeding and no easy bruising Allergy / Immunological: no urticaria and no problem reported Exam (Neuro) Physical Exam: The patient is right-handed. The patient is awake, alert, and attentive. Speech is normal without any aphasia or dysarthria. Mentation and thought processes are intact, with full orientation and normal fund of knowledge. Mood and affect are normal and appropriate. Appearance and grooming are normal. Short and long-term memory are intact to conversation. Pupils are 4 mm bilaterally and reactive to light. Extraocular eye muscles seem intact in all directions but when she looks to the right she has increased double vision. I do not see an obvious 6th or third nerve palsy. Visual acuity and visual peña seem normal grossly to confrontation. There are no deficits to sensation in the face in all 3 distributions of the fifth cranial nerve bilaterally. Corneal reflexes are positive bilaterally. Facial strength and symmetry was normal bilaterally. Hearing seems intact grossly to voice and finger rub bilaterally. Palate moves well without asymmetry. There is normal sternocleidomastoid and trapezius strength bilaterally. Tongue is midline with good strength bilaterally. Neck has a full range of motion without discomfort. There are no cervical bruits bilaterally. There are no cranial or ocular bruits. Heart is without murmur. There is a regular rhythm and rate. Cervical and thoracic spine are nontender to palpation. Lumbar spine down into the sacral spine is quite tender to palpation. There is no swelling or discoloration. Gait is not tested. Stance sitting up in bed is reasonable. She does have back pain with sitting up. With outstretched arms there is no drift. There are no resting, postural, or action tremors. There is no ataxia with finger to nose testing. There is good facility in the hands. No other abnormal involuntary movements are noted. Motor strength is 5/5 diffusely in the arms bilaterally including deltoids, biceps, triceps, brachioradialis, wrist flexors and extensors, instructional leader, and intrin sic hand muscles. Motor strength is somewhat difficult to gauge in the legs bilaterally, because of giveaway weakness secondary to pain in her low back and legs. Otherwise, strength is reasonably intact without significant focal weakness including hip flexors, quadriceps, hamstrings, gastrocnemius, tibialis anterior, tibialis posterior, and Peroneii muscles bilaterally. However, the right leg does seem a little bit stronger than the left diffusely. The limbs have good tone without rigidity, but there is some spasticity in the left leg with manipulation.. There is no atrophy noted in the muscles. Muscle bulk is normal, there is no tenderness to palpation, no myotonia to percussion, and no fasciculations seen. Sensory examination reveals some decrease sensation to pin and touch in the lower extremities bilaterally diffusely symmetrically circumferentially up to the umbilicus bilaterally. Above this sensation returns. Hands seem spared. Reflexes are 2/4 in the biceps, triceps, brachioradialis, quadriceps, and Achilles tendons bilaterally. Toes are downgoing with plantar stimulation bilaterally. Peripheral pulses are present and of normal quality distally in all 4 limbs. Th ere is no peripheral edema noted in the limbs. Results & Data Vital Signs (Past 12 Hours) Vital Signs Temp Pulse Resp BP Pulse Ox O2 Del Method 03/31/24 03:20 36.9 C 75 16 108/68 95 Room Air PG Care Time/CCT Total # of Minutes Spent Total Time Spent with Patient: Total time spent is greater than 50% in coordination of care (as documented) at patient's floor/unit and/or counseling patient: Coding Level of Care Code 82786 INT INP/OBS CARE MIN Diagnoses Multiple sclerosis G35 Numbness and tingling of both legs R20.0; R20.2 Lumbar radicular pain M54.16 Time Spent (min) 110
[2024-03-31] MEDS: bisacodyL 5 MG TABEC PO SCH (19:54)
[2024-03-31 21:10] VITALS: RESP 16
[2024-04-01 07:36] VITALS: O2SAT 98
--- NOTE | 2024-04-01 07:41 | Obstetrical Progress Note ---
Date of Service April 01, 2024 Assessment & Plan (1) state: Patient recovering well after delivery. Ready for D/C home today. Known MS: Has had some L LE pain and L lower back pain for which neurology was consulted. They note this may represent MS flare but wanted to hold off on treatment unti l/unless worsening, at which point MRI w/ gado would be utilized to determine the severity of flare also. Patient voices that she is not worse today than yesterday. She also had some tinnitus after a dose of toradol which resolved with stopping that med. Can manage as outpatient for the MS, with her established neuro practice, prn. Subjective Ambulation: ambulating normally Voiding: no voiding problems Passing Gas:: Yes Diet Tolerance:: regular diet Lochia:: Small Feeding Type:: bottle feeding (Baby not latching well, pt not excited about pumping) Current Pain Level(1-10): 0 Physical Exam Constitutional WD/WN, vitals as above Eyes PERRL, conjunctivae normal, anicteric sclerae ENMT external ear and nose normal, oropharynx normal Neck trachea midline, no thyromegaly Respiratory normal respiratory effort and able to speak in complete sentences; no respiratory distress, no labored breathing and does not use accessory muscles Cardiovascular Rate/Rhythm: regular rate and regular rhythm Extremities: no calf tenderness and no pedal edema Chest (Breasts) Breast: normal inspection of breasts Gastrointestinal (Abdomen) Inspection/Auscultation: abdomen normal to inspection; abdomen not distended Musculoskeletal no cyanosis or clubbing, extremities motor strength 5/5 Skin no rashes, warm and dry Neurologic patellar DTR's 2+ bilat, sensation intact Psychiatric A+Ox3, euthymic affect Genitourinary Speculum/Bimanual Exam: uterus nontender OB Exam Abdomen: + fundal height (at umbilicus) Fundus: + firm Results & Data Vital Signs (Past 12 Hours) Vital Signs Temp Pulse Resp BP Pulse Ox O2 Del Method 04/01/24 07:02 98.2 F 76 16 116/79 98 Room Air 03/31/24 23:10 98.2 F 65 16 119/78 95 Room Air 03/31/24 19:45 98.4 F 69 16 120/78 98 Room Air
[2024-04-01 10:04] VITALS: BP 125/87; PULSE 79; TEMP 97.9
[2024-04-01] MEDS ORDERED: METHOCARBAMOL 750 MG TABLET PO PRN (11:27)
--- NOTE | 2024-04-01 13:27 | Neurology Progress Note ---
Date of Service April 01, 2024 Assessment & Plan (1) Multiple sclerosis: (2) Numbness and tingling of both legs: (3) Lumbar radicular pain: Plan This patient has a longstanding history of multiple sclerosis on Ocrevus, who has been fairly stable, but does have a significant amount of disability (and disease load on MRIs) for age. She has lower extremity pain and spasms with weakness and gait disturbance. She has double vision. All of these are chronic condition. However, after vaginal delivery last evening she is worse with her palm and dysesthesias in the lower extremities. I am not certain whether the numbness up to T10 is new or old with a more prominent expression since delivery. She seems to have radicular pain of the lumbosacral nature bilaterally, left greater than right. Muffled hearing in the left ear is likely secondary to ketorolac given the jane ing of the symptom of the injection. Therefore, I am not certain she has had an actual new MS flareup or just some of her old symptoms coming out with the stress of delivery. She is planning on breast-feeding. One third of MS patient's who undergo vaginal delivery can exacerbate their MS. There is a fourfold protection of this with breast-feeding compared to bottle feeding. Recommendations: 1. Hold on testing and treatment from a neurologic standpoint for now. 2. If she is worse or has persistent symptoms I may consider MRI of the thoracic and lumbar spine (with and without contrast). At this time there is no indication for cervical spine or brain MRI. 3. Consider steroids but I would hold on this unless convinced she had an actual flare up. I will try to avoid steroids in the short-term as she is trying to heal, from her delivery 4. Consider methocarbamol 750 mg 3 times a day for spasms. She can take this regularly 3 times a day or as needed. 5. The patient should follow-up with neurology as an outpatient about 2 to 3 weeks after discharge with a neurology PA Overall, I spent a total of 50 minutes with this case including review of records, direct evaluation of the patient at bedside, report generation, and discussion of the case with the patient and her family and RN at bedside, and Dr. Lea, including differential diagnosis and treatment options. Admission and Anticipated Discharge Date Admission Date: March 30, 2024 Subjective Patient is feeling about the same with her low back and lower extremities however the left leg is worse than the right. The right may be getting better compared to yesterday. Left is about the same although she is more comfortable lying still. She still has some muffled hearing in the left ear as before but does not have tinnitus or ear pain. She has pain that starts in the lumbar spine and radiates down into the legs diffusely bilaterally, left greater than right. She has no new vision issues, dizziness, weakness, or numbness. The upper extremities are asymptomatic. Blood pressure is 125/87 and she is afebrile. Results & Data Vital Signs (Past 12 Hours) Vital Signs Temp Pulse Resp BP Pulse Ox O2 Del Method 04/01/24 07:40 36.6 C 79 16 125/87 98 Room Air 04/01/24 07:02 36.8 C 76 16 116/79 98 Room Air Exam (Neuro) Physical Exam: She is awake and alert. Speech is without aphasia or dysarthria. Mood and affect seem normal and appropriate. Thought processes are intact with good long and short-term memory to conversation. Extraocular muscles are intact without nystagmus. There is no facial droop. Tongue is midline. Coordination is normal in the arms without tremor or ataxia. There is no spasticity or weakness/clumsiness in the hands. Motor strength is 5/5 diffusely in all major muscle groups in the arms or proximally and distally. Leg strength is essentially 5/5 on the right both proximally and distally. Strength is 4/5 on the left but she has giveaway weakness secondary to pain. Toes are downgoing to plantar stimulation bilaterally. PG Care Time/CCT Total # of Minutes Spent Total Time Spent with Patient: Total time spent is greater than 50% in coordination of care (as documented) at patient's floor/unit and/or counseling patient: Coding Level of Care Code 42429 SUB INP/OBS CARE 3/50MIN Diagnoses Multiple sclerosis G35 Numbness and tingling of both legs R20.0; R20.2 Lumbar radicular pain M54.16
== END 2024-04-01 15:13 | disposition home or self-care (01) | DRG 806 ==
LOC: 4S1 17:26 → 4E2 21:30

== ENCOUNTER 2025-01-29 17:46 | Observation (INO) ==
--- NOTE | 2025-01-29 18:54 | Emergency Department Note ---
History of Present Illness General Chief complaint: Neuro Symptoms/Deficit Stated complaint: NUMBNESS IN FACE AND BODY PAST 2 MONTHS, MS Time Seen by Provider: 01/29/25 18:06 History of Present Illness Patient is a 29-year-old female with past medical history significant for MS who presents to the emergency department for evaluation of what she suspects is an MS relapse. She notes over the last 2 months, she has been having progressively worsening symptoms. She reports headaches, dizziness, which have now progressed to facial numbness, she has numbness, pain and weakness in her extremities that have been progressively worsening. She has a motorized wheelchair that she has become more dependent on. She has been having falls. She has been finding it difficult to care for herself, and her [id number] daughter at home. She has chronic urinary incontinence, and denies any changes in this. She follows with Dr. Chen, she saw him in October. She did resume her Ocrevus, had a dose on 12/17. She is still currently breast-feeding. She is trying to wean. She had a menstrual cycle in November, no menses in December, but attributed this to the fact that she is still breast-feeding. Denies any fevers. No nausea or vomiting. She is able to move her bowels without difficulty. Home Medications Medication Instructions Recorded Confirmed Type ocrelizumab 30 mg/mL intravenous 600 mg (20 mL) IV Q6MO #20 mL 12/07/24 01/29/25 Rx solution (Ocrevus) Allergies Allergy/AdvReac Type Severity Reaction Status Date / Time No Known Allergies Allergy Verified 12/27/24 09:21 Past Med/Surg History Problem List (Updated 01/29/25 @ 22:14 by Priyank Padilla) Lower extremity weakness (Acute) Upper extremity weakness (Acute) Dizziness (Acute) Headache (Acute) Multiple sclerosis (Acute) Multiple sclerosis has significant disability at baseline, spastic paraparesis, wheelchair confined- stopped meds due to recent (delivered 03/30/24) follows with dr. chen and [facility] state Lumbar radicular pain Numbness and tingling of both legs (Acute) Vaginal delivery IUGR (intrauterine growth restriction) affecting care of mother growth restriction Not immune to hepatitis B virus Multiple sclerosis affecting Hyperalgesia Entered 06/2023 Globus sensation Entered 06/2023 Dysphagia Entered 06/2023 Paresthesia (Acute) Entered 06/2023 Vitamin D deficiency Medical History Lumbar radicular pain Uses wheelchair do to MS Mother currently breast-feeding Dysphagia occasional food sticking History of epidural anesthesia x1 Acid reflux Surgical History History of esophagogastroduodenoscopy (EGD) S/P hernia surgery umbilical Family History Mother Hypertension Colorectal cancer Father Hypertension Grandmother (Maternal) Diabetes Heart disease Denies family history of Ovarian cancer Breast cancer Social History Smoking Status: Never smoker Second Hand Exposure: No; Do You Dip or Chew Tobacco: No; Hx Alcohol Use: No Hx Substance Use: No Preferred Language: Lao Communication Ability: Effective Communication Ability Comment: can converse in Lao well - reports difficulty reading/writing Lao Clay Miller Required: No Beliefs That Will Affect Care: None marital status: marital status details: Anna Marie (28) [phone] Current Living Situation: Spouse and Family Current Living Situation Comment: lives w and 3 year old daughter, no pets 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 occupational status: 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 occupation: [employer] 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 Feels Safe at Home: Yes Assistive Devices: Wheelchair Review of Systems A total of 10 systems reviewed and were otherwise negative Physical Exam Vital Signs Vital Signs - 24 hr 01/29/25 17:47 01/29/25 19:19 01/29/25 19:42 Temperature 36.6 C Temperature Source Temporal Artery Scan Pulse Rate 77 72 72 Pulse Rate from SpO2 Sensor 70 Respiratory Rate 18 17 Blood Pressure 156/87 H 122/76 Blood Pressure Mean 110 91 Pulse Oximetry 99 99 Oxygen Delivery Method Room Air Sepsis Recent Fever Within 48 Hours No Sepsis New/Unexplained Change in Mental Status N/A Sepsis Action Taken by Nursing No Action Required CONSTITUTIONAL: Well-appearing 21-year-old female who is awake and alert and laying semiupright on the gurney in no acute distress. EYES: Pupils equal, round, reactive to light and accommodation. EOMs intact without nystagmus. Sclera are anicteric. ENT: Tympanic membranes intact, with normal landmarks. External canals are clear. Oral and nasopharynx are clear. Mucous membranes are moist, no lesions, tongue and gums appear normal. NECK: Supple without lymphadenopathy. No meningeal signs. Full active range of motion without discomfort. CARDIOVASCULAR: Regular rate and rhythm. Peripheral pulses easy to palpable. RESPIRATORY: Breath sounds equal and clear to auscultation. GI: Bowel sounds are present. Abdomen is soft, nontender, nondistended. No guarding or rebound. MUSCULOSKELETAL: Full range of motion of extremities x 4 with generalized weakness, no aylin hemiparesis or significant gross neurodeficit. No cyanosis, edema, joint tenderness or swelling. No deformity. INTEGUMENTARY: No lesions or rash, normal skin turgor. NEUROLOGICAL: Alert, oriented, and cooperative. Cranial nerves grossly intact. Generalized paresthesias of the extremities noted. Upper and lower extremity DTRs 2+ bilaterally. LYMPH: No lymphadenopathy. Course Course The patient was seen and assessed as above. External medical records are reviewed, including neurology visit from a couple of months ago, and prior admission from earlier this year. She has quite debilitating MS, she has been experiencing worsening symptoms over the last 2 months, but did not want to pursue inpatient care while she was trying to finish the semester, and care for her young children at home. She is now done with school, and does feel that she requires further medical care. IV lock was initiated and laboratory studies were collected. After considerable discussion, the patient is agreeable to inpatient care and evaluation. Case reviewed with attending physician, Dr. Best. Diagnostics, as interpreted by me: Laboratory studies: White count normal at 6400. H&H 12 and 37, no significant electrolyte imbalance, no JORDEN, transaminitis. test negative. Urine without signs of infection. Consultation placed with ED trimming caser and patient reviewed with the [facility] hospitalist for admission. While awaiting admission orders, patient rested something for headache and was given Toradol IV. She otherwise remained stable in the ED pending admission. Chronic conditions affecting care: MS Differential diagnosis: MS flare, Infection, dehydration, metabolic abnormality, hypo/hyperglycemia, electrolyte disturbance, anemia, cardiac sources, intracerebral event, toxicologic, neurologic, as well as other pathologies. Administered Medications Discontinued Medications Baclofen (Baclofen 10 Mg Tab) 5 mg PO PRN STA Stop: 01/29/25 21:41 Last Admin: 12/09/25 22:07 Dose: Not Given Documented By: ANGELA Ketorolac Tromethamine (Ketorolac Tromethamine 15 Mg/Ml Vial) 15 mg IV NOW STA Stop: 01/29/25 21:55 Last Admin: 01/29/25 22:06 Dose: 15 mg Documented By: ANGELA Medical Decision Making Differential Diagnosis See ED Course. Medical Records Attestation: I reviewed the patient's medical records. Home Medications Current Medication List: was personally reviewed by me Laboratory Data Attestation: I reviewed the patient's lab results. 01/29/25 19:15 01/29/25 19:15 Lab Results 01/29/25 01/29/25 Range/Units 19:14 19:15 WBC 6.49 (4.8-10.8) K/ul RBC 4.57 (4.20-5.40) M/uL Hgb 12.8 (12.0-16.0) g/dL Hct 37.8 (37.0-47.0) % MCV 82.7 (80.0-100.0) fL MCH 28.0 (25.0-34.0) pg MCHC 33.9 (32.0-36.0) g/dL RDW Std Deviation 39.0 (36.4-46.3) fL RDW Coeff of Jonh 13.0 (11.5-14.5) % Plt Count 366 (130-400) K/uL MPV 8.7 L (9.4-12.4) fL Neutrophils % (Manual) 20 % Lymphocytes % (Manual) 46 % Monocytes % (Manual) 6 % Eosinophils % (Manual) 5 % Basophils % (Manual) 4 % Neutrophils # (Manual) 1.30 L (1.40-6.50) K/uL Total Absolute Neuts 1.30 L (1.4-6.5) K/uL Lymphocytes # (Manual) 2.99 (1.2-3.4) K/uL Total Abs Lymphocytes 4.22 H (1.2-3.4) K/uL Monocytes # (Manual) 0.39 (0.11-0.59) K/uL Eosinophils # (Manual) 0.32 (0-0.50) K/uL Basophils # (Manual) 0.26 H (0-0.2) K/uL Large Granular Lymphs 19 % # Lrg Granular Lymphs 1.23 K/uL Sodium 138 (136-145) mmol/L Potassium 3.7 (3.5-5.1) mmol/L Chloride 108 H (98-107) mmol/L Carbon Dioxide 24 (21-32) mmol/L Anion Gap 6 (3-11) BUN 11 (6-23) mg/dl Creatinine 0.66 (0.6-1.2) mg/dl Est Cr Clr Drug Dosing Not Reportable eGFR 122.46 BUN/Creatinine Ratio 16.7 (10-20) Glucose 91 (70-99(Fasting)) mg/dl Calcium 9.1 (8.6-10.3) mg/dl Magnesium 2.0 (1.7-2.4) mg/dl Total Bilirubin 0.7 (0.2-1.0) mg/dl AST 16 (13-39) U/L ALT 8 (7-52) U/L Alkaline Phosphatase 89 (34-104) U/L Total Protein 7.0 (6.0-8.3) gm/dl Albumin 4.2 (3.4-5.0) gm/dl Globulin 2.8 (2.5-4.0) gm/dl Albumin/Globulin Ratio 1.5 (0.9-2) HCG, Qual Negative (Negative) Urine Color Yellow Urine Appearance Clear (Clear) Urine pH 5.0 (4.5-7.5) Ur Specific Alexander 1.028 (1.000-1.030) Urine Protein Negative (Negative) Urine Glucose (UA) Negative (Negative) Urine Ketones Trace H (Negative) Urine Blood Trace H (Negative) Urine Nitrite Negative (Negative) Urine Bilirubin Negative (Negative) Urine Urobilinogen Negative (Negative) Ur Leukocyte Esterase Trace H (Negative) Urine WBC (Auto) 0-5 (0-5) /hpf Urine RBC (Auto) 0-2 (0-2) /hpf U Hyaline Cast (Auto) 0-2 (0-2) /lpf U Epithel Cells (Auto) 0-2 (0-2) /hpf Urine Bacteria (Auto) None Seen (None Seen) Urine Comment MDM Narrative See ED Course. Impression & Plan Multiple sclerosis, Numbness and tingling of both legs, Headache, Dizziness, Upper extremity weakness, Lower extremity weakness Discharge Plan Visit Data Chief Complaint: Neuro Symptoms/Deficit Stated Complaint: NUMBNESS IN FACE AND BODY PAST 2 MONTHS, MS ED Provider: David Carter ED Midlevel Provider: Priyank Padilla Discharge Problem: Multiple sclerosis, Numbness and tingling of both legs, Headache, Dizziness, Upper extremity weakness, Lower extremity weakness Patient Disposition: Being Evaluated by Hospitalist Condition: Fair Forms Stand Alone Forms: [employer] Prescriptions Prescriptions: No Action Ocrevus 30 mg/mL solution 600 mg IV Q6MO Qty: 20 1RF Rx Instructions: 30 minutes before each infusion, premedicate with methylprednisolone 100mg IV, diphenhydramine 25mg IV, and acetaminophen 500mg PO.May give an additional 25mg diphenhydramine IV during infusion PRN Referrals Referrals: [facility] [Primary Care Provider] -
[2025-01-29 19:27] LABS: Hematocrit (blood only) 37.8 % (37.0-47.0); Hemoglobin 12.8 g/dL (12.0-16.0); Mean Corpuscular Hemoglobin 28.0 pg (25.0-34.0); Mean Corpuscular Volume 82.7 fL (80.0-100.0); Platelet Count 366 K/uL (130-400); RDW Standard Deviation 39.0 fL (36.4-46.3); Red Blood Count 4.57 M/uL (4.20-5.40); White Blood Count 6.49 K/ul (4.8-10.8)
[2025-01-29 19:46] LABS: Alanine Aminotransferase 8 U/L (7-52); Albumin Globulin Ratio 1.5 (0.9-2); Albumin Level 4.2 gm/dl (3.4-5.0); Alkaline Phosphatase 89 U/L (34-104); Anion Gap 6 (3-11); Bilirubin,Total 0.7 mg/dl (0.2-1.0); Blood Urea Nitrogen 11 mg/dl (6-23); Calcium 9.1 mg/dl (8.6-10.3); Carbon Dioxide 24 mmol/L (21-32); Chloride 108 mmol/L (98-107); Globulin 2.8 gm/dl (2.5-4.0); Glucose 91 mg/dl (70-99(Fasting)); Magnesium 2.0 mg/dl (1.7-2.4); Potassium 3.7 mmol/L (3.5-5.1); Sodium 138 mmol/L (136-145); Total Protein 7.0 gm/dl (6.0-8.3)
[2025-01-29 19:48] LABS: Pregnancy Test, Serum Negative (Negative)
[2025-01-29 19:51] LABS: Appearance Urine Clear (Clear); Bacteria Urine Automated None Seen (None Seen); Cast Urine Automated 0-2 /lpf (0-2); Epithelial Cell Urine Auto 0-2 /hpf (0-2); Glucose Urine UA Negative (Negative); RBC Urine Automated 0-2 /hpf (0-2); WBC Urine Automated 0-5 /hpf (0-5)
[2025-01-29 20:30] LABS: ALC (manual) 4.22 K/uL (1.2-3.4); ANC (manual) 1.30 K/uL (1.4-6.5); Large Granular Lymph # (manua 1.23 K/uL; Large Granular Lymph % (manual) 19 %
--- NOTE | 2025-01-29 21:04 | History & Physical Report ---
Date of Service January 29, 2025 Assessment & Plan (1) Multiple sclerosis: (2) Uses wheelchair: (3) Lower extremity weakness: (4) Upper extremity weakness: (5) Dizziness: (6) Headache: (7) Numbness and tingling of both legs: (8) state: Plan 29-year-old female with multiple sclerosis, considerable disability, wheelchair- bound, spastic weakness, neurogenic bladder, chronic pain, history of right optic neuritis with residual vision loss is admitted for numbness, muscle tightness, weakness and tingling sensation of her arms and legs associated with dizziness, headaches and chronic neurogenic bladder with no focal deficits. #MS flare/ relapse/ Progressive worsening MS: - MS flare with possible worsening vs relapse. On Ocrelizumab which was resumed after her . Possible post related cause or medication interruption during her . -CBC, CMP, Urinalysis insignificant ruling out any acute infections causing flare. - Consult neurology for possible MRI brain and spine to see any new/enhancing lesions from previous imaging and address her neurogenic bladder. Possible lumbar puncture to rule out oligoclonal bands/ IgG index for relapse evaluation. Appreciate recs. - Most recent MRI of the brain, cervical, and thoracic spine suggest stability of her demyelinating disease. - Ordered IV Methylpred 1gm stat. Baclofen 10mg BID for muscle spasms and analgesic tylenol as needed. - Regular diet. - CBC AM labs ordered. - Fall precautions. #No VTE prophylaxis. #Admit Med/Surg. History of Present Illness Chief Complaint: 29 yrs old female with PMH of multiple sclerosis, wheelchair bound at baseline, presents to the ED because of progression of her symptoms since 2 months now. Reports symptoms first started with numbness on face and moved to numbness, muscle tightness, weakness and tingling sensation of her arms and legs associated with dizziness and headaches. She had falls over 3 times. Her urinary and bowel incontinence started after her delivery 10 months ago. She has spastic tightness all over her body sometimes and right now is present on the right hand. She was busy with her school and child and couldn't seek the care earlier. She had worsening of her symptoms and couldn't walk a year ago and started using motorized wheelchair, before she used payne and walker. She follows up with Dr chen, last saw on October. Resumed her Ocrevus after on 12/17 which she has been taking since 10 yrs. Last menstrual cycle on November and is still beast feeding. No focal deficits, fever, shortness of breath, cognitive decline. Primary Care Provider: [facility] Allergies Allergy/AdvReac Type Severity Reaction Status Date / Time No Known Allergies Allergy Verified 12/27/24 09:21 Home Medications Medication Instructions Recorded Confirmed Type ocrelizumab 30 mg/mL intravenous 600 mg (20 mL) IV Q6MO #20 mL 12/07/24 01/29/25 Rx solution (Ocrevus) Past Med/Surg History Problem List (Updated 01/30/25 @ 17:29 by David Chen MD) Relapsing remitting multiple sclerosis Sinusitis Multiple sclerosis exacerbation (Acute) Lower extremity weakness (Acute) Upper extremity weakness (Acute) Dizziness (Acute) Headache (Acute) Multiple sclerosis (Acute) Multiple sclerosis has significant disability at baseline, spastic paraparesis, wheelchair confined- stopped meds due to recent (delivered 03/30/24) [facility] Lumbar radicular pain Numbness and tingling of both legs (Acute) Vaginal delivery IUGR (intrauterine growth restriction) affecting care of mother growth restriction Not immune to hepatitis B virus Multiple sclerosis affecting Hyperalgesia Entered 06/2023 Globus sensation Entered 06/2023 Dysphagia Entered 06/2023 Paresthesia (Acute) Entered 06/2023 Vitamin D deficiency Medical History Lumbar radicular pain Uses wheelchair do to MS Mother currently breast-feeding Dysphagia occasional food sticking History of epidural anesthesia x1 Acid reflux Surgical History History of esophagogastroduodenoscopy (EGD) S/P hernia surgery umbilical Family History Mother Hypertension Colorectal cancer Father Hypertension Grandmother (Maternal) Diabetes Heart disease Denies family history of Ovarian cancer Breast cancer Social History Smoking Status: Never smoker Second Hand Exposure: No; Do You Dip or Chew Tobacco: No; Hx Alcohol Use: No Hx Substance Use: No Preferred Language: Kuwaiti Communication Ability: Effective Communication Ability Comment: can converse in Kuwaiti well - reports difficulty reading/writing Kuwaiti Director Of Leadership Development Required: No Beliefs That Will Affect Care: Synagogue Synagogue Beliefs: Episcopalian - vegan/vegetarian diet, common times of episcopalian marital status: marital status details: Anna Marie (28) [phone] Current Living Situation: Spouse and Family Current Living Situation Comment: lives w and 3 year old daughter, no pets current occupational status: 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 Physical Exam Physical Exam: General: resting comfortably in no acute distress Head: Normocephalic and atraumatic Eyes: Normal inspection, extraocular muscles intact Ear, nose, throat: Normal external exam Neck: Normal range of motion Respiratory: lungs clear to auscultation bilaterally Cardiovascular: Regular rate/rhythm, no murmur GI: soft, nontender, no guarding or rebound Extremities: Muscle strength 4/5 in lower and 5/5 in upper extremities.Full range of motion of extremities x 4. Neuro: The patient awake and alert, Oriented to:Person, Place and Time. Numbness over upper and lower limbs without focal deficits, symmetric faces, CN II-XII intact. Upper and lower extremity DTRs 2+ bilaterally. Skin: Warm, dry, and intact Results & Data Results & Data Vital Signs (Past 12 Hours) Vital Signs Temp Pulse Resp BP Pulse Ox O2 Del Method 01/29/25 19:42 72 17 122/76 99 Room Air 01/29/25 19:19 72 01/29/25 17:47 36.6 C 77 18 156/87 H 99 Resident Activity Tracking Resident Involvement: Resident Care Provided Care Provided: Adult [facility] Resident Supervision Co-Signing Physician Notes Attending addendum: I have physically seen this patient, have supervised the medical residents activities, and agree with the H&P unless as otherwise noted. Assessment and Plan: The patient is a 29-year-old female with past medical history including multiple sclerosis, wheelchair-bound, spastic weakness, neurogenic bladder, chronic pain syndrome, and history of right optic neuritis with residual vision loss. She presents to the emergency department with concerns regarding an MS flare/relapse, due to symptoms of generalized numbness, muscle tightness, weakness and tingling sensation of arms and legs. She also has accompanying dizziness, headaches, and urinary symptoms associated with neurogenic bladder. Multiple sclerosis flare/relapse- Patient is on Ocrelizumab as outpatient. This had been stopped during her , and has been resumed post . Her daughter is now 10 months old. Give 1 g Solu-Medrol IV this evening, with further doses to be confirmed by Dr. Chen Baclofen 10 mg p.o. 3 times daily as needed muscle spasms Acetaminophen 650 mg by mouth every 6 hours as needed for mild pain and fever Most recent MRI of brain, thoracic and cervical spine on 05/03/2024 with stable. Consult neurology Dr. Chen.
[2025-01-29] MEDS ORDERED: MELATONIN 3 MG TAB PO PRN (22:05)
[2025-01-29] MEDS ORDERED: ALUMINUM/MAGNESIUM SUSP 30 ML UDC PO PRN (22:05)
[2025-01-29] MEDS: KETOROLAC TROMETHAMINE 15 MG/ML VIAL IV STA (22:06)
[2025-01-29] MEDS: BACLOFEN 10 MG TAB PO STA (22:07)
[2025-01-29] MEDS: ACETAMINOPHEN 325 MG TAB PO PRN (23:57)
[2025-01-30] MEDS: methylPREDNISolone 1,000 MG in NSS 250 ML IV ONE (01:24)
[2025-01-30] MEDS: ONDANSETRON INJ 2 MG/ML 2 ML VIAL IV PRN (02:38)
[2025-01-30] MEDS: IBUPROFEN 200 MG TAB PO STA (02:38)
[2025-01-30 07:16] LABS: Hematocrit (blood only) 39.6 % (37.0-47.0); Hemoglobin 13.4 g/dL (12.0-16.0); Immature Granulocytes # (auto) 0.01 K/uL (0.01-0.20); Immature Granulocytes % (auto) 0.2 %; Mean Corpuscular Hemoglobin 27.9 pg (25.0-34.0); Mean Corpuscular Volume 82.3 fL (80.0-100.0); Platelet Count 378 K/uL (130-400); RDW Standard Deviation 38.7 fL (36.4-46.3); Red Blood Count 4.81 M/uL (4.20-5.40); White Blood Count 6.25 K/ul (4.8-10.8)
--- NOTE | 2025-01-30 07:24 | Hospitalist Progress Note ---
Date of Service January 30, 2025 Assessment & Plan (1) Multiple sclerosis: (2) Uses wheelchair: (3) state: Plan 29-year-old female with PMHx of multiple sclerosis presents with constellation of symptoms including HAs, dizziness, numbness/tingling, muscle spasms: #MS flare: - Pt follows with Dr. Chen for MS management, resumed Ocrelizumab in Oct 2024 in period. Last infusion before that was April 2023 - Labs largely unremarkable - in particular, no evidence for infectious precipitant - Neurology consulted, appreciate additional recommendations - MRI brain and c-spine without new lesions, stable compared to previous study - Will obtain MRI T-spine - Treating as MS flare - S/P IV Methylprednisolone 1g - continue 1g daily x2 more days - Baclofen BID for muscle spasms - Tylenol PRN for pain, Percocet PRN for breakthrough pain - PT/OT eval and treat - Fall precautions VTE ppx: Lovenox Admission and Anticipated Discharge Date Admission Date: January 29, 2025 Supervising Physician Co-Signing Physician Notes I personally examined the patient and verified roque points of history and exam, discussed case, and agree with decision making and plan documented by Dr. Moreau. Patient is a 29-year-old female with a past medical history of multiple sclerosis presenting with progressive worsening of her functional status over the past 2 months on admission for MS exacerbation. She reports multiple falls over the past few weeks with sensations of burning neuropathic type radiating pain sensations across bilateral upper and lower extremities. Patient follows with neurology and is on ocrelizumab. Patient was initiated on 1 g IV Methylpred for 3 doses, then we will likely proceed with outpatient taper. Will continue pain control. Consider agents for hyperalgesia. Patient appears comfortable, lungs clear b/l to auscultation, regular rate and rhythm, no acute distress, diminished sensation bilateral lower extremities. 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 She reports her is at home caring for her 2 children. PT/OT consulted. Subjective Patient assessed at bedside along with attending. She states that sx started 2 months ago with dizziness/ HAs. She then developed numbness, first in her face, then in her extremities. This led to increased frequency of falls. Most recently, she has been having muscle spasms and shock-like sensations in random places. Today, notes mild improvement in sx following first dose of IV steroids. Review of Systems Review of Systems: As per HPI. Physical Exam Physical Exam: Constitutional: no acute distress HEENT: NCAT, no conjunctival injection Resp: no increased work of breathing GI: nondistended Remainder of exam findings per attending attestation. Results & Data Results & Data Vital Signs (Past 12 Hours) Vital Signs Temp Pulse Pulse Pulse Resp BP BP 01/30/25 07:12 36.6 C 81 16 115/73 01/30/25 01:15 36.7 C 69 19 01/30/25 00:45 36.7 C 69 19 01/30/25 00:00 72 18 01/29/25 23:03 72 01/29/25 22:30 69 16 122/86 01/29/25 22:00 76 15 121/82 01/29/25 21:30 72 14 151/92 H 01/29/25 21:00 73 16 136/86 01/29/25 20:30 69 14 136/74 01/29/25 20:00 81 24 124/72 01/29/25 19:45 65 16 122/76 01/29/25 19:42 72 17 122/76 BP Pulse Ox O2 Del Method 01/30/25 07:12 98 Room Air 01/30/25 01:15 121/76 98 Room Air 01/30/25 00:45 121/76 98 Room Air 01/30/25 00:00 123/73 99 Room Air 01/29/25 23:03 01/29/25 22:30 99 Room Air 01/29/25 22:00 98 Room Air 01/29/25 21:30 99 Room Air 01/29/25 21:00 99 Room Air 01/29/25 20:30 99 Room Air 01/29/25 20:00 99 Room Air 01/29/25 19:45 99 Room Air 01/29/25 19:42 99 Room Air Resident Activity Tracking Resident Involvement: Resident Care Provided Care Provided: Adult Hospital Medicine
[2025-01-30] MEDS: BACLOFEN 10 MG TAB PO SCH (07:47)
[2025-01-30] MEDS: GADOBUTROL 65ML VIAL IV ONE (09:27)
--- NOTE | 2025-01-30 11:05 | Magnetic Resonance Report ---
MR brain MS wo/w con CLINICAL HISTORY: Extremity numbness and tingling. Evaluate for for MS flare. COMPARISON STUDY: MRI of the brain May 03, 2024. TECHNIQUE: Utilizing a 3 Betsy magnet and dedicated coil, multiplanar, multi echo imaging of the brai n was performed pre and postcontrast administration according to the multiple sclerosis protocol. Int ravenous injection of 8.5 cc of Gadavist was uneventful. FINDINGS: There are no foci of restricted diffusion to suggest acute infarct. No acute intracranial h emorrhage, midline shift or mass effect is present. Cavum septum pellucidum is incidentally noted. Ve ntricular system is unremarkable. There are no extra axial collections. Numerous white matter T2 hype rintense foci are similar to MRI of May 03, 2024. A few foci of increased signal within visualized portions of the cervical cord are better depicted on the cervical spine MRI which will be reported se parately. No parenchymal enhancement to suggest active demyelination. The appearance of the brain is unchanged. There has been interval prominent of extensive sinus mucosal thickening. The right maxilla ry sinus is opacified. The left maxillary sinus is nearly entirely opacified. There is moderate ethmo id and moderate to marked left frontal sinus mucosal thickening. IMPRESSION: 1. No acute intracranial findings. 2. No change in numerous white matter T2 hyperintense foci since previous MRI. These suggest previous sites of demyelination. No evidence for active demyelination. 3. Interval development of extensive paranasal sinus opacification, as detailed above. ACT 112: Negative or not required by law. Electronically signed by: Cooper Mckenna M.D. 01/30/2025 11:03 AM
--- NOTE | 2025-01-30 16:07 | Magnetic Resonance Report ---
MRI OF THE CERVICAL SPINE COMBO CLINICAL HISTORY: Multiple sclerosis. Tingling and numbness in all 4 extremities. COMPARISON STUDY: MRI of the cervical spine dated 05/03/2024. MRI of the thoracic spine dated 5. TECHNIQUE: MRI of the cervical spine was performed utilizing various T1 and T2-weighted sequences in the axial and sagittal planes. Contrast enhanced sequences are acquired following the IV administrati on of 8.5 cc of Gadavist. The examination is significantly degraded by motion artifact. FINDINGS: Cervical spine: Vertebral body height and alignment are maintained throughout the cervical spine. The re is straightening of the cervical lordosis with mild reversal centered at C5. The atlantodental art iculation is maintained. The spinous processes appear intact. No destructive bony lesion is seen. The re is no significant degenerative endplate change. Intervertebral discs: Normal in height and signal intensity. Spinal cord: The cervical cord is normal in morphology. T2 hyperintense plaques are again noted. Ther e is an 8 mm plaque at the level of C2 seen on axial 2-D merge image #27. A subcentimeter plaque is s een at level of C4 on sagittal STIR image #8. No new lesion is identified and there is no abnormal po stcontrast enhancement. There may also be a lesion versus artifact in the upper thoracic cord level o f T3. C2-C3: Unremarkable. C3-C4: Unremarkable. C4-C5: Unremarkable. C5-C6: Unremarkable. C6-C7: Unremarkable. C7-T1: Unremarkable. Soft tissues: The prevertebral and paraspinous soft tissues are within normal limits. Brain parenchyma: The imaged brain parenchyma at the skull base is normal as visualized. There is opa cification of the visualized maxillary sinuses. IMPRESSION: 1. Motion compromised examination. 2. T2 hyperintense plaques in the cervical cord are similar in appearance to the 05/03/2024 examinatio n. No new cervical cord lesion is identified and there is no abnormal postcontrast enhancement. 3. There is a questionable lesion versus artifact in the upper thoracic cord at the level of T3. This does not show postcontrast enhancement and is of indeterminate significance. 4. There is no disc herniation, central canal stenosis, or neural foraminal narrowing throughout the cervical spine. 5. No destructive bony process is seen. Electronically signed by: Elias Church M.D. 01/30/2025 4:06 PM
--- NOTE | 2025-01-30 17:24 | Neurology Consultation ---
Date of Consultation January 30, 2025 Assessment & Plan (1) Multiple sclerosis exacerbation: (2) Sinusitis: (3) Relapsing remitting multiple sclerosis: Plan 29-year-old female with relapsing remitting multiple sclerosis, considerable disability at baseline including spastic paraparesis, neurogenic bladder, chronic vision loss affecting the right eye due to history of optic neuritis. Has been having an increase in her chronic MS symptoms recently in the context of extensive sinusitis identified on MRI. She does have facial pressure and aural fullness which are new, although denies any fevers, nasal congestion, or rhinorrhea. Her lack of more significant sinusitis symptoms is likely due to her immunosuppressed status from ocrelizumab. I suspect subacute chronic sinusitis is responsible for her escalating MS symptoms recently. No evidence of new or active lesions on MRI of the brain or cervical spine. I have discussed her case with Dr. Moreau. Continue with Solu-Medrol, 1000 mg IV, plan for 3 total doses, followed by Medrol Dosepak taper. Would also recommend treating her sinusitis with Augmentin. May continue with baclofen to address MS associated spasms. May increase the dosage to 10 mg 3 times daily. If necessary, could also add gabapentin 100 mg 3 times daily. MRI of the thoracic spine with and without contrast as ordered. Patient may continue with ocrelizumab infusions every 6 months, has been tolerating this treatment well. Going forward, however, if we find evidence of new or active lesions, would need to consider switching her disease-modifying therapy. She has been on Ocrevus since 2017, other previous treatments have included Rebif, Tecfidera, and Gilenya. Could consider Mavenclad if necessary. I will follow along. Have patient follow-up with myself or an WARREN in neurology clinic 2 to 3 weeks after discharge. History of Present Illness Reason for Consultation: Multiple sclerosis Requesting Physician: Jenn Attending Physician: Maria Mejia, History of Present Illness The patient is a 29-year-old female with a history of multiple sclerosis, I last saw her in neurology clinic November 15, 2024. 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 She has a history of right optic neuritis with chronic residual vision loss, spastic paraparesis, relies on a motorized scooter, and MS associated neurogenic bladder. She is post delivery of her second child this past March, has been breast-feeding, has continued with her ocrelizumab. MRIs completed this past April indicated stability of her demyelinating disease. Her demyelinating disease is extensive, however, with chronic lesions within the brain, cervical, and thoracic spinal cord. She informs me that she has been feeling rundown and more fatigued recently, complaining of frontal facial sinus pressure and associated facial paresthesias. These particular symptoms seem new. She also complains of an escalation of her chronic symptoms, diffuse mu scle spasms and pain and a greater degree of weakness. She denies any acute change in vision, no vertigo. Up-to-date MRI of the brain and cervical spine were completed earlier today. I independently reviewed the studies, there is no evidence of any new or active lesions within either the brain or cervical spinal cord. There are chronic C-spine lesions at the C2 and C4 levels. There is a lesion at the T3 level as well. There are chronic demyelinating lesions within both cerebral hemispheres, juxtacortical, subcortical and periventricular distribution. There are no obvious lesions within the brainstem or cerebellum. There is an incidental cavum septum pellucidum. There is evidence of extensive paranasal sinus disease. Apart from facial pain and pressure, she denies experiencing significant sinus congestion or rhinorrhea. Allergies Allergy/AdvReac Type Severity Reaction Status Date / Time No Known Allergies Allergy Verified 12/27/24 09:21 Home Medications Medication Instructions Recorded Confirmed Type ocrelizumab 30 mg/mL intravenous 600 mg (20 mL) IV Q6MO #20 mL 12/07/24 01/29/25 Rx solution (Ocrevus) Patient History Medical History Lumbar radicular pain Uses wheelchair do to MS Mother currently breast-feeding Dysphagia occasional food sticking History of epidural anesthesia x1 Acid reflux Surgical History History of esophagogastroduodenoscopy (EGD) S/P hernia surgery umbilical Family History Mother Hypertension Colorectal cancer Father Hypertension Grandmother (Maternal) Diabetes Heart disease Denies family history of Ovarian cancer Breast cancer Social History Smoking Status: Never smoker Second Hand Exposure: No; Do You Dip or Chew Tobacco: No; Hx Alcohol Use: No Hx Substance Use: No Preferred Language: Kenyan Communication Ability: Effective Communication Ability Comment: can converse in Kenyan well - reports difficulty reading/writing [place] Required: No Beliefs That Will Affect Care: Hindu Hindu Beliefs: Protestant - vegan/vegetarian diet, common times of [employer] marital status: marital status details: Anna Marie (28) [phone] Current Living Situation: Spouse and Family Current Living Situation Comment: lives w and 3 year old daughter, no pets 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 occupational status: 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 occupation: [employer] student Feels Safe at Home: Yes Assistive Devices: Wheelchair Review of Systems Constitutional: no fever and no chills Eyes: as per Subjective / HPI and + blind spots Ear, Nose, Mouth, Throat: + ear pain; no hearing loss Respiratory: no dyspnea Cardiovascular: no palpitations Gastrointestinal: no nausea and no vomiting Genitourinary: + urinary urgency Musculoskeletal: + muscle weakness Integumentary: no rash and no lesions Neurologic: as per Subjective / HPI, + gait abnormality and + headache(s); no tremor(s), no abnormal speech, no confusion and no memory loss Psychiatric: no depression and no anxiety Hematologic / Lymphatic: no easy bleeding and no easy bruising Exam (Neuro) Constitutional: well developed and well nourished; no acute distress Eyes: PERRL and EOM intact bilaterally; + abnormal visual field confrontation and no nystagmus Neurologic: Oriented to:: Person, Place and Time Memory: Short Term Intact and Remote Intact Attention: Span Intact and Concentration Intact Speech Fluency: negative Dysarthria or Dysfluency Speech Aphasia: negative Aphasia Fund of Knowledge: Current Events, Past History and Vocabulary Cranial Nerves: Normal III, IV, , V, VII, VIII, IX, X, XI and XII; Abnorm II (Reduced visual field for the right eye) Motor Strength: Normal Upper Extremities; negative Normal Lower Extremities Spasticity: Legs Sensation: negative Pain/Temperature Intact or Vibration Intact Coordination: Heel-Miles Abnormal; negative Finger-Nose Abnormal Deep Tendon Reflexes: Rt Biceps: 2+, Lt Biceps: 2+, Rt Patellar: 3+ and Lt Patellar: 3+ Results & Data Vital Signs (Past 12 Hours) Vital Signs Temp Pulse Resp BP Pulse Ox O2 Del Method 01/30/25 14:05 37.0 C 81 16 113/72 98 Room Air 01/30/25 07:12 36.6 C 81 16 115/73 98 Room Air Coding Level of Care Code 35983 INT INP/OBS CARE 3/75MIN Diagnoses Multiple sclerosis exacerbation G35 Sinusitis J32.9 Relapsing remitting multiple sclerosis G35.A Time Spent (min) 90 Comment Total time includes patient contact, chart review, counseling, note preparation
[2025-01-30] MEDS: AMOXICILLIN/CLAVULANATE 875 MG TAB PO SCH (19:54)
[2025-01-30] MEDS: methylPREDNISolone 1,000 MG in NSS 250 ML IV SCH (19:55)
[2025-01-30] MEDS: ENOXAPARIN INJ 40 MG/0.4 ML SYR SQ SCH (19:59)
[2025-01-30] MEDS: IBUPROFEN 200 MG TAB PO PRN (21:27)
--- NOTE | 2025-01-31 05:21 | Billing Data ---
Date of Service January 31, 2025 Coding Level of Care Code 65875 INT INP/OBS CARE
--- NOTE | 2025-01-31 07:52 | Hospitalist Progress Note ---
Date of Service January 31, 2025 Assessment & Plan (1) Multiple sclerosis: (2) Uses wheelchair: (3) state: Plan Anjelica is a 29yo F with PMH of multiple sclerosis with considerable disability including wheelchair-dependence, neurogenic bladder, chronic pain, and 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 She is admitted for management of likely MS flare. #MS flare: - Pt follows with Dr. Chen for MS management, resumed Ocrelizumab in Oct 2024 in period. Last infusion before that was April 2023. Next expected in April 2025 - Labs largely unremarkable - in particular, no evidence for infectious precipitant - MRI brain and c-spine without new lesions, stable compared to previous study - Neurology consulted, appreciate additional recommendations Will obtain MRI t-spine No indication for LP - Treating as MS flare Has received IV Methylprednisolone 1g x 2. Plan for total 3 days Baclofen BID for muscle spasms Tylenol PRN for mild-mod pain. Percocet PRN for severe pain - PT/OT eval and treat - Fall precautions #Sinusitis - Ongoing sx of headache and congestion. Currently afebrile, no ear or throat pain, no facial tenderness - Continue Augmentin 875mg BID for total 10? days (end 02/09?) VTE ppx: Lovenox Admission and Anticipated Discharge Date Admission Date: January 29, 2025 Review of Systems Review of Systems: As per HPI. Physical Exam Physical Exam: Constitutional: no acute distress HEENT: NCAT, no conjunctival injection Resp: no increased work of breathing GI: nondistended Remainder of exam findings per attending attestation. Results & Data Results & Data Vital Signs (Past 12 Hours) Vital Signs Temp Pulse Resp BP Pulse Ox O2 Del Method 01/31/25 07:03 36.9 C 67 14 119/70 96 Room Air 01/30/25 22:08 36.9 C 76 16 126/76 97 Room Air
[2025-01-31] MEDS: GADOBUTROL 30ML VIAL IV ONE (09:58)
--- NOTE | 2025-01-31 11:34 | Magnetic Resonance Report ---
MRI OF THE THORACIC SPINE WITH AND WITHOUT CONTRAST CLINICAL HISTORY: Extremity numbness and tingling. Evaluate for MS flare. COMPARISON: Thoracic spine MRI May 03, 2024. TECHNIQUE: Utilizing a 3 Betsy magnet and dedicated coil, multiplanar, multiecho imaging of the thor acic spine was performed before and after the intravenous administration of 8.5 cc. FINDINGS: Alignment of the thoracic spine is anatomic. Vertebral body heights are maintained. There a re no fractures. There are no disc herniations. Central canal and neural foramen are patent. A few hernandez btle small foci of increased T2 signal within the thoracic cord are similar to MRIs dating back to 2023. No new foci of cord signal abnormality present. There is no cord enhancement. Vertebral s oft tissues are unremarkable. IMPRESSION: 1. A few subtle foci of increased T2 signal within the thoracic spine which are similar to previous M RIs. These favor previous sites of demyelination. 2. No new plaques. 3. No evidence for active demyelination. . ACT 112: Negative or not required by law. Electronically signed by: Cooper Mckenna M.D. 01/31/2025 11:33 AM
[2025-01-31 14:36] VITALS: BP 129/82; PULSE 68; RESP 16; TEMP 98.2; O2SAT 97
--- NOTE | 2025-01-31 16:31 | Discharge Summary ---
Date of Service January 31, 2025 Principal Diagnosis MS flare Discharge Exam Gen: NAD, WD/WN, much more animated than in prior exam HEENT: NCAT, normal conjunctiva, MMM CV: RRR, no m/r/g Resp: CTAB, breathing unlabored Abd: Soft, NT/ND, +BS MSK: Full ROM, no gross deformities on inspection Skin: Warm, dry, well-perfused, no rashes or bruising Neuro: AOx3, EOMI, PERRL, normal facial movement, normal phonation, str 5/5 in b/l UE and 4/5 in b/l LE, SILT, no spasticity noted, reflexes 2+ Psych: Full, euthymic affect. Speech pace normal. Thoughts linear and goal- directed. Discharge Data Allergies Allergy/AdvReac Type Severity Reaction Status Date / Time No Known Allergies Allergy Verified 12/27/24 09:21 Consultations 01/29/25 19:59 ED Decision to Admit Stat 01/29/25 22:05 Consult Neurology Routine Ordered Studies 01/30/25 08:31 MRI Brain [MR brain MS wo/w con] Routine MRI Cervical [MR cervical spine wo/w con] Routine 01/31/25 06:00 MRI Thoracic [MR thoracic spine wo/w con] Routine Hospital Course (1) Multiple sclerosis: (2) Uses wheelchair: (3) state: Gonzalo Dejesus is a 29yo F with PMH of multiple sclerosis with considerable disability including wheelchair-dependence, neurogenic bladder, chronic pain, and 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 She was admitted for management of likely MS flare and was deemed safe for discharge after she completed course of IV steroids and her symptoms impr jonnie. #MS flare: - Pt follows with Dr. Chen for MS management, resumed Ocrelizumab in Oct 2024 in period. Last infusion before that was April 2023. Next expected in April 2025 - Labs since admission largely unremarkable - in particular, no evidence for infectious precipitant - MRI brain, c-spine, and t-spine without new lesions, stable compared to previous studies - Neurology was consulted during admission; advised treating as MS flare, no LP indicated - Pt had Tylenol and Percocet available PRN for pain, did need several doses of Percocet to bring down pain from initial 8/10 in all 4 extremities. By time of discharge, was milder and only in lower extremities - Pt given Baclofen 10mg BID for muscle spasms during stay but reports Baclofen and Gabapentin have never helped her - Pt received 3 days of 1g IV Methylprednisolone during her stay. After discharge, will need steroid taper w/ Medrol Dosepak - Written rx for outpatient PT/OT provided #Sinusitis - Ongoing sx of headache and congestion. Currently afebrile, no ear or throat pain, no facial tenderness - Continue Augmentin 875mg BID for total 7 days (end 1217 AM) VTE ppx: Lovenox Total Time Total Time Spent Total Time Spent (In Minutes): See attending documentation Discharge Plan Discharge Items Patient Disposition: Home - Home Health Services Reason For Visit: MULTIPLE SCLEROSIS FLARE Discharge Diagnosis: MS flare Condition on Discharge: Fair Activity: Per Instructions section Non-emergency contact: Primary Care Provider Call non-emergency contact if: you have any medication questions, your symptoms worsen and your pain is concerning for you Follow-up/Referrals: [facility] [Primary Care Provider] - (FOLLOW UP WITH [facility] IN 7-10 DAYS ) Neftaly Choudhary MD [Resident] - Diet: Regular Addtl Attending Provider Instructions: You came to the hospital with progressive weakness, numbness/tingling in your extremities, headaches and dizziness. You were admitted for a suspected MS flare-up. You were treated with IV steroids, muscle relaxers, and pain medication. You were deemed safe for discharge when your symptoms improved and you no longer required IV medication. We will be sending you home with more medication - steroids to taper off the high-dose IV you received during your stay, antibiotics for your sinus infection, and medications for any potential yeast infection from being on antibiotics. We encourage you to follow up closely with your neurologist and PCP; if you do not have a consistent provider at [facility], please call our clinic to schedule an appointment (see below). We are also setting you up with PT and OT. Medications Your medication list has been reviewed and reconciled. An updated list is included with your discharge paperwork; please review this list closely and make note of any changes. We sent a prescription for a Medrol Dosepak to your pharmacy.This is a short course of steroids that comes in a blister-pack, where you push out the right number of pills to take for each day. Take as prescribed on the package We also sent a prescription for the antibiotic Augmentin (amoxicillin- clavulanate). Take Augmentin 875mg one tablet twice daily for the next 6 days, for a total of 7 days of treatment. The last dose should fall on the morning of 02/06. We also sent over an antifungal Diflucan (fluconazole). Take one tablet to prevent a yeast infection from arising while on antibiotics. There will be a second tablet available, which you should take if symptoms continue 5-7 days after the first dose. Take your medications as instructed; do not skip a dose. Make sure all of your doctors know every medicine you are taking (including [id number] medicines, vitamins, and supplements). Follow-up appointments: Make a follow-up appointment with your PCP within the next week. It is very important that you follow up with them shortly after discharge from the hospital. You may call [phone] to schedule an appointment with our clinic, if you would like. The resident who saw you during your stay was Dr. Choudhary. You will be contacted to schedule outpatient PT/OT sessions Keep all your follow-up appointments as already scheduled. If you cannot make an appointment, notify your provider. Call 230 or go to the ER if your symptoms return or you experience any of the following: Sudden, severe abdominal pain or nausea/vomiting Severe chest pain, or chest pain that radiates (moves) to your jaw or arm Sudden, severe shortness of breath or difficulty breathing Thank you for allowing us to participate in your care. Pending Studies at Discharge: No Stand-Alone Forms: My [facility], Smoking Cessation Medications and DC Order Prescriptions: New amoxicillin-pot clavulanate 875-125 mg Tablet 1 tab PO BIDM 6 Days Qty: 12 0RF fluconazole 150 mg tablet 150 mg PO DAILY Qty: 2 0RF Rx Instructions: Take one tablet during course of Augmentin for yeast infection symptoms. If symptoms persist, take a second dose in 5-7 days methylprednisolone [Medrol (Natalio)] 4 mg tablets,dose pack 4 mg PO DAILY Qty: 21 0RF Rx Instructions: Per package instructions Continued Ocrevus 30 mg/mL solution 600 mg IV Q6MO Qty: 20 1RF Rx Instructions: 30 minutes before each infusion, premedicate with methylprednisolone 100mg IV, diphenhydramine 25mg IV, and acetaminophen 500mg PO.May give an additional 25mg diphenhydramine IV during infusion PRN Admission Data Admit Date/Time: 01/29/25 22:07 Attending Provider: Maria Mejia Admit Provider: Domonique Barajas [facility] Other Providers: Manny Fernandez; David Chen; Luis Vargas; Brenda Kerr; Peace Hernandez; Sheri Smith Other Interventions: Discharge Summary Assessment (RN) Last Done: 01/31/25 16:21 Supervising Physician Co-Signing Physician Notes I personally examined the patient and verified roque points of history and exam, discussed case, and agree with decision making and plan documented by Dr. Choudhary. Patient is a 29-year-old female with a past medical history of multiple sclerosis presenting with progressive worsening of her functional status over the past 2 months on admission for MS exacerbation. She reports multiple falls over the past few weeks with sensations of burning neuropathic type radiating pain sensations across bilateral upper and lower extremities. Patient follows with neurology and is on ocrelizumab. Patient was initiated on 1 g IV Methylpred for 3 doses inpatient. Patient reported improvement of symptoms with IV steroids. Patient appears comfortable, lungs clear b/l to auscultation, regular rate and rhythm, no acute distress, diminished sensation bilateral lower extremities. PT/OT consulted and recommended outpatient physical therapy when able so patient has equipment and space to gain strength and function. Baclofen was increased to 3 times daily on discharge and patient was provided a Medrol Dosepak to complete steroids. Patient was treated with Augmentin for bacterial sinus infection, she was provided rx of Diflucan for possible antibiotic asso ciated yeast infection. She will follow-up with neurology outpatient. Information for her to establish outpatient primary care provided. She will likely have hospital follow-up at [facility]. Total attending time 42 min Resident Activity Tracking Resident Involvement: Resident Care Provided Care Provided: Adult Hospital Medicine
== END 2025-01-31 17:14 | disposition home health service (06) ==
LOC: 3E 17:46 → ED 17:46 → SUATTDRO 22:07 → 3E 01-30 00:16